=== PATIENT | female | born 1965 | race Caucasian/White ===

== ENCOUNTER → 2016-06-14 | Outpatient (CLI) | payer MEDICARE, OTHER ==
[~2016-06-14] MED LIST: ATOM10 PO; FISH OIL PO; FISH OIL/SALMO500 MG PO; FURO20 PO; HYD25 PO; HYDR-4031 PO; KDUR20 PO; METO2.5T2 PO; OMEGA PO; OMEP20 PO; QUET100T33 PO; QUET200T PO; QUET25TA34 PO; ROPI1TAB11 PO; ROPI1TAB38 PO; SERT100T12 PO; SPIR25 PO; VIST50 PO; VITAD1000 PO
== END | disposition home or self-care (01) ==
LOC: RADPV 11:03
PROVIDERS: ATTEND Orthopaedic Surgery
DX: Z47.1 Aftercare following joint replacement surgery (principal); Z96.651 Presence of right artificial knee joint

== ENCOUNTER 2017-03-16 10:27 | Inpatient (IN) | payer MEDICARE, MEDICAID ==
[~2017-03-16] VITALS: Ht 170.2 cm; Wt 133.8 kg
[2017-03-16] MEDS ORDERED: QUEtiapine FUMARATE 100 MG TABLET PO PRN (11:00)
[2017-03-16] MEDS ORDERED: ZOLPIDEM TARTRATE 10 MG TABLET PO PRN (11:00)
[2017-03-16 11:52] VITALS: BP 140/86
[2017-03-16] MEDS: HydrOXYzine PAMOATE 25 MG CAPSULE PO SCH ×2 (14:07→16:54)
[2017-03-16] MEDS: IBUPROFEN 600 MG TABLET PO PRN (14:34)
[2017-03-16] MEDS ORDERED: PNEUMOCOCCAL VACCINE POLYVALENT 0.5 ML VIAL [PPSV23] IM ONE (14:45)
[2017-03-16] MEDS ORDERED: LOPERAMIDE HCL 2 MG CAPSULE PO PRN (16:00)
[2017-03-16] MEDS ORDERED: GuaiFENesin/D-METHORPHAN [SUGAR-FREE] 200-20MG/10 ML SYRUP UDCUP PO PRN (16:00)
[2017-03-16] MEDS ORDERED: HydrOXYzine PAMOATE 50 MG CAPSULE PO PRN (16:00)
[2017-03-16] MEDS ORDERED: PROMETHAZINE HCL 25 MG TABLET PO PRN (16:00)
[2017-03-16] MEDS ORDERED: MAG HYDROX/AL HYDROX/SIMETH ES 30 ML SUSPENSION UDCUP PO PRN (16:00)
[2017-03-16] MEDS ORDERED: ACETAMINOPHEN 325 MG TABLET PO PRN (16:00)
[2017-03-16] MEDS ORDERED: MAGNESIUM HYDROXIDE SUSPENSION 30 ML UDCUP PO PRN (16:00)
[2017-03-16] MEDS: ALBUTEROL SULFATE HFA 90 MCG/PUFF 8 GM INHALER IH SCH (16:54)
[2017-03-16] MEDS: THIAMINE HCL 100 MG TABLET PO SCH (16:57)
[2017-03-16 17:00] VITALS: BP 145/90
[2017-03-16] MEDS: HydrOXYzine PAMOATE 50 MG CAPSULE PO SCH (20:17)
[2017-03-16] MEDS: LORazepam 2 MG TABLET PO PRN (20:18)
[2017-03-16] MEDS ORDERED: MIRTAZAPINE 30 MG TABLET PO SCH (21:00)
[2017-03-16] MEDS ORDERED: QUEtiapine FUMARATE 200 MG TABLET PO SCH (21:00)
[2017-03-16] MEDS ORDERED: ROPINIRole HCL 1 MG TABLET PO SCH (21:00)
[2017-03-16 21:06] VITALS: BP 127/87
[2017-03-17 05:54] VITALS: BP 129/76
[2017-03-17 08:20] LABS: BASOPHILS # (AUTO) 0.03 K/uL (0.00-0.20); BASOPHILS % (AUTO) 0.6 % (0.0-2.0); EOSINOPHILS # (AUTO) 0.25 K/uL (0.00-0.70); HEMATOCRIT 33.6 % (36-46); HEMOGLOBIN 11.3 g/dL (12.0-16.0); LYMPHOCYTES # (AUTO) 1.8 K/uL (1.0-4.8); LYMPHOCYTES % (AUTO) 31.2 % (22.0-44.0); MEAN CORPUSCULAR HEMOGLOBIN 31.4 pg (26.0-34.0); MEAN CORPUSCULAR HGB CONC 33.7 G/dL (31.0-37.0); MEAN CORPUSCULAR VOLUME 93 fL (80-100); MONOCYTES # (AUTO) 0.6 K/uL (0.1-1.0); MONOCYTES % (AUTO) 9.9 % (2.0-9.0); NEUTROPHILS # (AUTO) 3.1 K/uL (1.8-7.7); NEUTROPHILS % (AUTO) 53.9 % (40.0-70.0); PLATELET COUNT (AUTO) 247 K/uL (150-450); RED BLOOD CELL COUNT(AUTO) 3.61 MIL/uL (4.00-5.20); RED CELL DISTRIBUTION WIDTH 13.4 % (11.5-14.5)
[2017-03-17 08:21] VITALS: BP 109/72
[2017-03-17] MEDS: HydrOXYzine PAMOATE 25 MG CAPSULE PO SCH ×3 (08:37→16:44)
[2017-03-17] MEDS: THIAMINE HCL 100 MG TABLET PO SCH ×2 (08:37→16:44)
[2017-03-17] MEDS: FOLIC ACID 1 MG TABLET PO SCH (08:37)
[2017-03-17] MEDS: MULTIVITAMINS WITH MINERALS, THERAPEUTIC TABLET PO SCH (08:37)
[2017-03-17] MEDS: OMEPRAZOLE 20 MG CAPSULE PO SCH (08:37)
[2017-03-17] MEDS: ATOMOXETINE HCL 10 MG CAPSULE PO SCH (08:38)
[2017-03-17] MEDS: ATOMOXETINE HCL 25 MG CAPSULE PO SCH (08:38)
[2017-03-17] MEDS: ATORVASTATIN CALCIUM 40 MG TABLET PO SCH (08:38)
[2017-03-17] MEDS: ASPIRIN 81 MG EC TABLET PO SCH (08:38)
[2017-03-17] MEDS: METOPROLOL SUCCINATE 100 MG ER TABLET PO SCH (08:38)
[2017-03-17] MEDS: ALBUTEROL SULFATE HFA 90 MCG/PUFF 8 GM INHALER IH SCH ×2 (08:39→16:44)
[2017-03-17] MEDS: ASCORBIC ACID 500 MG TABLET PO SCH (08:39)
[2017-03-17] MEDS ORDERED: ATOMOXETINE HCL 10 MG CAPSULE PO SCH (09:00)
[2017-03-17 09:13] LABS: ALANINE AMINOTRANSFERASE 57 U/L (12-78); ALBUMIN 3.3 g/dL (3.4-5.0); ALKALINE PHOSPHATASE 89 U/L (46-116); ANION GAP 8 mmol/L (8-16); ASPARTATE AMINOTRANSFERASE 30 U/L (15-37); BILIRUBIN,TOTAL 0.3 mg/dL (0.1-1.0); CALCIUM, TOTAL 8.5 mg/dL (8.8-10.5); CARBON DIOXIDE 27 mmol/L (22-29); CHLORIDE 105 mmol/L (98-107); CHOL/HDL RATIO 2.8 (3.9-5.7); CHOLESTEROL 155 mg/dL (131-200); CREATININE 0.74 mg/dL (0.60-1.30); FREE T4 (FREE THYROXINE) 0.68 ng/dL (0.76-1.46); GLOMERULAR FILTR. RATE CALC > 60 mL/min (>60); GLUCOSE,RANDOM 127 mg/dL (70-110); HDL CHOLESTEROL 55 mg/dL (40-60); LDL CHOL (CALC.) 73 mg/dL (0-130); POTASSIUM 3.4 mmol/L (3.5-5.1); SODIUM SERUM 140 mmol/L (136-145); THYROID STIMULATING HORMONE 2.32 uIU/mL (0.36-3.74); TOTAL PROTEIN, SERUM 6.3 g/dL (6.4-8.2); TRIGLYCERIDES 136 mg/dL (15-150); UREA NITROGEN, BLOOD 20 mg/dL (7-18)
[2017-03-17] MEDS ORDERED: POTASSIUM CHLORIDE 20 MEQ ER TABLET PO ONE (10:00)
[2017-03-17 10:08] LABS: HEMOGLOBIN A1C 7.1 % (4.5-6.2)
[2017-03-17] MEDS: IBUPROFEN 600 MG TABLET PO PRN ×2 (12:39→21:08)
[2017-03-17 16:05] VITALS: BP 126/69
[2017-03-17] MEDS: HydrOXYzine PAMOATE 50 MG CAPSULE PO SCH (20:26)
[2017-03-17] MEDS: MIRTAZAPINE 30 MG TABLET PO SCH (20:26)
[2017-03-18 01:13] VITALS: BP 129/76
[2017-03-18 08:05] VITALS: BP 132/80
[2017-03-18] MEDS: ASPIRIN 81 MG EC TABLET PO SCH (08:30)
[2017-03-18] MEDS: ATOMOXETINE HCL 10 MG CAPSULE PO SCH (08:30)
[2017-03-18] MEDS: ATOMOXETINE HCL 25 MG CAPSULE PO SCH (08:30)
[2017-03-18] MEDS: METOPROLOL SUCCINATE 100 MG ER TABLET PO SCH (08:30)
[2017-03-18] MEDS: THIAMINE HCL 100 MG TABLET PO SCH ×2 (08:31→16:43)
[2017-03-18] MEDS: ARIPiprazole 15 MG TABLET PO SCH (08:31)
[2017-03-18] MEDS: OMEPRAZOLE 20 MG CAPSULE PO SCH (08:31)
[2017-03-18] MEDS: ASCORBIC ACID 500 MG TABLET PO SCH (08:31)
[2017-03-18] MEDS: HydrOXYzine PAMOATE 25 MG CAPSULE PO SCH ×3 (08:31→16:44)
[2017-03-18] MEDS: MULTIVITAMINS WITH MINERALS, THERAPEUTIC TABLET PO SCH (08:31)
[2017-03-18] MEDS: FOLIC ACID 1 MG TABLET PO SCH (08:31)
[2017-03-18] MEDS: ATORVASTATIN CALCIUM 40 MG TABLET PO SCH (08:37)
[2017-03-18] MEDS: ALBUTEROL SULFATE HFA 90 MCG/PUFF 8 GM INHALER IH SCH ×2 (08:37→16:44)
[2017-03-18] MEDS ORDERED: DULoxetine HCL 20 MG CAPSULE PO SCH (09:00)
[2017-03-18] MEDS: PREGABALIN 50 MG CAPSULE PO SCH ×2 (12:36→16:44)
[2017-03-18 16:13] VITALS: BP 109/65
[2017-03-18 20:31] VITALS: BP 122/74
[2017-03-18] MEDS: IBUPROFEN 600 MG TABLET PO PRN (20:31)
[2017-03-18] MEDS: MIRTAZAPINE 30 MG TABLET PO SCH (21:19)
[2017-03-18] MEDS: ROPINIRole HCL 1 MG TABLET PO SCH (21:19)
[2017-03-18] MEDS: HydrOXYzine PAMOATE 50 MG CAPSULE PO SCH (21:19)
[2017-03-19 01:40] VITALS: BP 116/65
[2017-03-19 08:52] VITALS: BP 140/79
[2017-03-19] MEDS: ASCORBIC ACID 500 MG TABLET PO SCH (09:40)
[2017-03-19] MEDS: MULTIVITAMINS WITH MINERALS, THERAPEUTIC TABLET PO SCH (09:40)
[2017-03-19] MEDS: ASPIRIN 81 MG EC TABLET PO SCH (09:40)
[2017-03-19] MEDS: DULoxetine HCL 30 MG CAPSULE PO SCH (09:40)
[2017-03-19] MEDS: ARIPiprazole 15 MG TABLET PO SCH (09:40)
[2017-03-19] MEDS: FOLIC ACID 1 MG TABLET PO SCH (09:40)
[2017-03-19] MEDS: ATORVASTATIN CALCIUM 40 MG TABLET PO SCH (09:40)
[2017-03-19] MEDS: OMEPRAZOLE 20 MG CAPSULE PO SCH (09:40)
[2017-03-19] MEDS: METOPROLOL SUCCINATE 100 MG ER TABLET PO SCH (09:41)
[2017-03-19] MEDS: PREGABALIN 50 MG CAPSULE PO SCH ×3 (09:41→16:28)
[2017-03-19] MEDS: THIAMINE HCL 100 MG TABLET PO SCH ×2 (09:41→16:28)
[2017-03-19] MEDS: ATOMOXETINE HCL 25 MG CAPSULE PO SCH ×2 (09:41→10:08)
[2017-03-19] MEDS: HydrOXYzine PAMOATE 25 MG CAPSULE PO SCH ×3 (09:41→16:28)
[2017-03-19] MEDS: IBUPROFEN 600 MG TABLET PO PRN ×2 (09:43→19:54)
[2017-03-19] MEDS: ATOMOXETINE HCL 10 MG CAPSULE PO SCH (10:01)
[2017-03-19] MEDS: ALBUTEROL SULFATE HFA 90 MCG/PUFF 8 GM INHALER IH SCH ×2 (10:07→16:29)
[2017-03-19] MEDS: LORazepam 2 MG TABLET PO PRN (13:28)
[2017-03-19 16:07] VITALS: BP 125/68
[2017-03-19 19:54] VITALS: BP 130/80
[2017-03-19] MEDS: ROPINIRole HCL 1 MG TABLET PO SCH (20:28)
[2017-03-19] MEDS: MIRTAZAPINE 30 MG TABLET PO SCH (20:28)
[2017-03-19] MEDS: HydrOXYzine PAMOATE 50 MG CAPSULE PO SCH (20:28)
[2017-03-20] VITALS: BP 135/77
[2017-03-20 08:11] VITALS: BP 152/92
[2017-03-20] MEDS: MULTIVITAMINS WITH MINERALS, THERAPEUTIC TABLET PO SCH (08:18)
[2017-03-20] MEDS: FOLIC ACID 1 MG TABLET PO SCH (08:18)
[2017-03-20] MEDS: HydrOXYzine PAMOATE 25 MG CAPSULE PO SCH ×3 (08:19→16:29)
[2017-03-20] MEDS: THIAMINE HCL 100 MG TABLET PO SCH ×2 (08:19→16:29)
[2017-03-20] MEDS: ARIPiprazole 15 MG TABLET PO SCH (08:19)
[2017-03-20] MEDS: OMEPRAZOLE 20 MG CAPSULE PO SCH (08:19)
[2017-03-20] MEDS: ASCORBIC ACID 500 MG TABLET PO SCH (08:20)
[2017-03-20] MEDS: METOPROLOL SUCCINATE 100 MG ER TABLET PO SCH (08:20)
[2017-03-20] MEDS: ATOMOXETINE HCL 25 MG CAPSULE PO SCH (08:21)
[2017-03-20] MEDS: ATOMOXETINE HCL 10 MG CAPSULE PO SCH (08:24)
[2017-03-20] MEDS: ASPIRIN 81 MG EC TABLET PO SCH (08:25)
[2017-03-20] MEDS: ATORVASTATIN CALCIUM 40 MG TABLET PO SCH (08:25)
[2017-03-20] MEDS: PREGABALIN 50 MG CAPSULE PO SCH ×3 (08:25→16:29)
[2017-03-20] MEDS: DULoxetine HCL 30 MG CAPSULE PO SCH (08:26)
[2017-03-20] MEDS: ALBUTEROL SULFATE HFA 90 MCG/PUFF 8 GM INHALER IH SCH ×2 (08:26→16:29)
[2017-03-20 09:59] VITALS: BP 147/95
[2017-03-20 10:01] VITALS: BP 114/96
[2017-03-20] MEDS: IBUPROFEN 600 MG TABLET PO PRN (10:01)
[2017-03-20 16:58] VITALS: BP 132/86
[2017-03-20] MEDS: LORazepam 2 MG TABLET PO PRN (18:15)
[2017-03-20] MEDS: MIRTAZAPINE 30 MG TABLET PO SCH (20:06)
[2017-03-20] MEDS: ROPINIRole HCL 1 MG TABLET PO SCH (20:06)
[2017-03-20] MEDS: HydrOXYzine PAMOATE 50 MG CAPSULE PO SCH (20:07)
[2017-03-21 01:13] VITALS: BP 130/74
[2017-03-21] MEDS: HydrOXYzine PAMOATE 25 MG CAPSULE PO SCH ×3 (08:50→16:20)
[2017-03-21] MEDS: MULTIVITAMINS WITH MINERALS, THERAPEUTIC TABLET PO SCH (08:51)
[2017-03-21] MEDS: FOLIC ACID 1 MG TABLET PO SCH (08:51)
[2017-03-21] MEDS: ARIPiprazole 15 MG TABLET PO SCH (08:51)
[2017-03-21] MEDS: OMEPRAZOLE 20 MG CAPSULE PO SCH (08:51)
[2017-03-21] MEDS: THIAMINE HCL 100 MG TABLET PO SCH ×2 (08:51→16:20)
[2017-03-21] MEDS: ATOMOXETINE HCL 25 MG CAPSULE PO SCH (08:52)
[2017-03-21] MEDS: ATOMOXETINE HCL 10 MG CAPSULE PO SCH (08:52)
[2017-03-21] MEDS: METOPROLOL SUCCINATE 100 MG ER TABLET PO SCH (08:53)
[2017-03-21] MEDS: ASCORBIC ACID 500 MG TABLET PO SCH (08:53)
[2017-03-21] MEDS: ASPIRIN 81 MG EC TABLET PO SCH (08:59)
[2017-03-21] MEDS: DULoxetine HCL 30 MG CAPSULE PO SCH (08:59)
[2017-03-21] MEDS: ATORVASTATIN CALCIUM 40 MG TABLET PO SCH (08:59)
[2017-03-21] MEDS: PREGABALIN 50 MG CAPSULE PO SCH ×3 (08:59→16:41)
[2017-03-21 09:00] VITALS: BP 149/86
[2017-03-21] MEDS: ALBUTEROL SULFATE HFA 90 MCG/PUFF 8 GM INHALER IH SCH ×2 (09:00→16:20)
[2017-03-21] MEDS ORDERED: ARIP15TA2 PO (13:46)
[2017-03-21] MEDS ORDERED: ROPI1TAB38 PO (13:46)
[2017-03-21] MEDS ORDERED: DULO30CA2 PO (13:46)
[2017-03-21] MEDS ORDERED: MIRT30 PO (13:46)
[2017-03-21] MEDS ORDERED: ATOM25 PO (13:46)
[2017-03-21] MEDS ORDERED: HYD25 PO (13:46)
[2017-03-21] MEDS ORDERED: PREG50 PO (13:46)
[2017-03-21 16:20] VITALS: BP 125/79
[2017-03-21] MEDS ORDERED: ALBU8HFA4 IH (17:32)
[2017-03-21] MEDS ORDERED: ASPI-1182 PO (17:33)
[2017-03-21] MEDS ORDERED: FOLI1TAB15 PO (17:34)
[2017-03-21] MEDS ORDERED: ATOR40TA28 PO (17:35)
[2017-03-21] MEDS ORDERED: METO-558 PO (17:36)
[2017-03-21] MEDS ORDERED: ASCO500 PO (17:37)
[2017-03-21] MEDS ORDERED: THIA100 PO (17:37)
== END 2017-03-21 21:50 | disposition home or self-care (01) | DRG 885 ==
LOC: B2S 11:29
PROVIDERS: ADMIT Psychiatry & Neurology Psychiatry; ATTEND Psychiatry & Neurology Psychiatry
PROC: 3E0234Z Introduction of Serum, Toxoid and Vaccine into Muscle, Percutaneous Approach (ICD-10-PCS; principal; 2017-03-16)
DX: F25.9 Schizoaffective disorder, unspecified (principal); I11.0 Hypertensive heart disease with heart failure; E66.01 Morbid (severe) obesity due to excess calories; I50.22 Chronic systolic (congestive) heart failure; R45.851 Suicidal ideations; F23 Brief psychotic disorder; Z68.42 Body mass index [BMI] 45.0-49.9, adult; E78.5 Hyperlipidemia, unspecified; E87.6 Hypokalemia; G47.00 Insomnia, unspecified; G89.29 Other chronic pain; J44.9 Chronic obstructive pulmonary disease, unspecified; K21.9 Gastro-esophageal reflux disease without esophagitis; M19.90 Unspecified osteoarthritis, unspecified site; Z96.651 Presence of right artificial knee joint; F17.200 Nicotine dependence, unspecified, uncomplicated; M20.41 Other hammer toe(s) (acquired), right foot; G25.81 Restless legs syndrome; Z91.19 Patient's noncompliance with other medical treatment and regimen; Z95.810 Presence of automatic (implantable) cardiac defibrillator; Z91.013 Allergy to seafood; Z91.018 Allergy to other foods; Z79.899 Other long term (current) drug therapy; Z23 Encounter for immunization
CPT/HCPCS: 83036; 84132; 84439; 84443; 90471; J3535

== ENCOUNTER 2017-07-12 13:25 | Inpatient (IN) | payer MEDICARE, MEDICAID ==
[~2017-07-12] VITALS: Ht 170.2 cm; Wt 139.4 kg
[~2017-07-12 13:25] MED LIST changes: +ALBU8HFA4 IH; +ARIP15TA2 PO; +ASCO500 PO; +ASPI-1182 PO; +ATOM25 PO; +ATOR40TA28 PO; +DULO30CA2 PO; -FISH OIL PO; -FISH OIL/SALMO500 MG PO; +FOLI1TAB15 PO; -FURO20 PO; -KDUR20 PO; +METO-558 PO; -METO2.5T2 PO; +MIRT30 PO; -OMEGA PO; +PREG50 PO; -QUET100T33 PO; -QUET200T PO; -QUET25TA34 PO; -ROPI1TAB11 PO; -SERT100T12 PO; -SPIR25 PO; +THIA100 PO; -VIST50 PO; -VITAD1000 PO
[2017-07-12] MEDS ORDERED: ZOLPIDEM TARTRATE 10 MG TABLET PO PRN (13:30)
[2017-07-12] MEDS ORDERED: LORazepam 2 MG TABLET PO PRN (13:30)
[2017-07-12] MEDS ORDERED: ALBUTEROL SULFATE HFA 90 MCG/PUFF 8 GM INHALER IH PRN ×2 (13:30→21:30)
[2017-07-12 13:52] VITALS: BP 125/72
[2017-07-12] MEDS ORDERED: HydrOXYzine PAMOATE 50 MG CAPSULE PO PRN (15:00)
[2017-07-12] MEDS ORDERED: MAGNESIUM HYDROXIDE SUSPENSION 30 ML UDCUP PO PRN (15:00)
[2017-07-12] MEDS ORDERED: PROMETHAZINE HCL 25 MG TABLET PO PRN (15:00)
[2017-07-12] MEDS ORDERED: GuaiFENesin/D-METHORPHAN [SUGAR-FREE] 200-20MG/10 ML SYRUP UDCUP PO PRN (15:00)
[2017-07-12] MEDS ORDERED: MAG HYDROX/AL HYDROX/SIMETH ES 30 ML SUSPENSION UDCUP PO PRN ×2 (15:00→21:30)
[2017-07-12] MEDS ORDERED: ACETAMINOPHEN 325 MG TABLET PO PRN ×2 (15:00→18:15)
[2017-07-12] MEDS ORDERED: LOPERAMIDE HCL 2 MG CAPSULE PO PRN ×2 (15:00→21:30)
[2017-07-12] MEDS: HydrOXYzine PAMOATE 25 MG CAPSULE PO SCH ×2 (15:39→16:53)
[2017-07-12] MEDS: PREGABALIN 50 MG CAPSULE PO SCH ×2 (15:39→16:53)
[2017-07-12 16:25] VITALS: BP 120/74
[2017-07-12] MEDS: THIAMINE HCL 100 MG TABLET PO SCH (16:53)
[2017-07-12] MEDS ORDERED: APIXABAN 5 MG TABLET PO SCH (17:00)
[2017-07-12] MEDS ORDERED: POTASSIUM CHLORIDE 20 MEQ ER TABLET PO SCH (17:00)
[2017-07-12] MEDS: QUEtiapine FUMARATE 100 MG TABLET PO PRN (20:39)
[2017-07-12] MEDS: MIRTAZAPINE 15 MG TABLET PO SCH (20:39)
[2017-07-12] MEDS: ROPINIRole HCL 1 MG TABLET PO SCH (20:39)
[2017-07-12] MEDS ORDERED: CloNIDine HCL 0.1 MG TABLET PO PRN (21:30)
[2017-07-12] MEDS ORDERED: BENZOCAINE/MENTHOL LOZENGE MM PRN (21:30)
[2017-07-12] MEDS ORDERED: BACITRACIN 28.4 GM OINTMENT TP PRN (21:30)
[2017-07-12] MEDS ORDERED: PETROLATUM,WHITE 71 GM JELLY TP PRN (21:30)
[2017-07-12] MEDS ORDERED: IBUPROFEN 600 MG TABLET PO PRN (21:30)
[2017-07-12] MEDS ORDERED: ONDANSETRON HCL 4 MG TABLET PO PRN (21:30)
[2017-07-13 06:35] VITALS: BP 118/65
[2017-07-13 08:55] VITALS: BP 129/77
[2017-07-13] MEDS ORDERED: GLUCAGON,HUMAN RECOMBINANT 1 MG VIAL IM PRN (09:00)
[2017-07-13] MEDS ORDERED: FOLIC ACID 1 MG TABLET PO SCH (09:00)
[2017-07-13] MEDS ORDERED: DULoxetine HCL 30 MG CAPSULE PO SCH (09:00)
[2017-07-13] MEDS: METOPROLOL SUCCINATE 50 MG ER TABLET PO SCH (09:14)
[2017-07-13] MEDS: THIAMINE HCL 100 MG TABLET PO SCH ×2 (09:14→16:38)
[2017-07-13] MEDS: FUROSEMIDE 40 MG TABLET PO SCH (09:14)
[2017-07-13] MEDS: OMEPRAZOLE 20 MG CAPSULE PO SCH (09:14)
[2017-07-13] MEDS: DOCUSATE SODIUM 100 MG CAPSULE PO SCH (09:14)
[2017-07-13] MEDS: ARIPiprazole 15 MG TABLET PO SCH (09:14)
[2017-07-13] MEDS: ASPIRIN 81 MG EC TABLET PO SCH (09:14)
[2017-07-13] MEDS: HydrOXYzine PAMOATE 25 MG CAPSULE PO SCH ×3 (09:14→16:38)
[2017-07-13] MEDS: POTASSIUM CHLORIDE 10 MEQ ER TABLET PO SCH ×2 (09:14→16:38)
[2017-07-13] MEDS: PREGABALIN 50 MG CAPSULE PO SCH ×3 (09:14→16:38)
[2017-07-13] MEDS: AMIODARONE HCL 200 MG TABLET PO SCH (09:14)
[2017-07-13] MEDS: MULTIVITAMINS WITH MINERALS, THERAPEUTIC TABLET PO SCH (09:14)
[2017-07-13] MEDS: ATOMOXETINE HCL 40 MG CAPSULE PO SCH (09:15)
[2017-07-13] MEDS: FOLIC ACID 1 MG TABLET PO SCH (09:19)
[2017-07-13 09:37] LABS: BASOPHILS % (AUTO) 0.7 % (0.0-2.0); EOSINOPHILS % (AUTO) 3.4 % (1.0-6.0); HEMATOCRIT 34.4 % (36-46); HEMOGLOBIN 11.7 g/dL (12.0-16.0); LYMPHOCYTES # (AUTO) 1.8 K/uL (1.0-4.8); LYMPHOCYTES % (AUTO) 22.7 % (22.0-44.0); MEAN CORPUSCULAR VOLUME 88 fL (80-100); MONOCYTES # (AUTO) 0.7 K/uL (0.1-1.0); MONOCYTES % (AUTO) 8.9 % (2.0-9.0); NEUTROPHILS # (AUTO) 5.2 K/uL (1.8-7.7); NEUTROPHILS % (AUTO) 64.3 % (40.0-70.0); PLATELET COUNT (AUTO) 253 K/uL (150-450); RED CELL DISTRIBUTION WIDTH 14.9 % (11.5-14.5)
[2017-07-13 09:57] LABS: HEMOGLOBIN A1C 7.5 % (4.5-6.2)
[2017-07-13] MEDS ORDERED: SODIUM CHLORIDE 0.65% 44 ML NASAL SPRAY NASAL PRN (10:30)
[2017-07-13 10:37] LABS: ALBUMIN 3.4 g/dL (3.4-5.0); BILIRUBIN,TOTAL 0.3 mg/dL (0.1-1.0); CALCIUM, TOTAL 8.5 mg/dL (8.8-10.5); CHOL/HDL RATIO 3.7 (3.9-5.7); CREATININE 1.06 mg/dL (0.60-1.30); FREE T4 (FREE THYROXINE) 0.77 ng/dL (0.76-1.46); POTASSIUM 3.2 mmol/L (3.5-5.1); THYROID STIMULATING HORMONE 3.04 uIU/mL (0.36-3.74); TOTAL PROTEIN, SERUM 6.6 g/dL (6.4-8.2)
[2017-07-13] MEDS ORDERED: POTASSIUM CHLORIDE 20 MEQ ER TABLET PO ONE (12:00)
[2017-07-13 12:26] VITALS: BP 124/77
[2017-07-13] MEDS: OXYMETAZOLINE HCL 0.05% 15 ML NASAL SPRAY NASAL SCH ×2 (12:30→20:38)
[2017-07-13 16:03] VITALS: BP 110/73
[2017-07-13] MEDS: INSULIN LISPRO 100 UNITS/ML SQ PRN (16:47)
[2017-07-13 16:48] LABS: GLUCOMETER DEV NAME(LOC) BV2S 2; GLUCOSE,POINT OF CARE 150 MG/DL (70-110)
[2017-07-13] MEDS: ACETAMINOPHEN 325 MG TABLET PO PRN (17:14)
[2017-07-13] MEDS: MIRTAZAPINE 15 MG TABLET PO SCH (20:37)
[2017-07-13] MEDS: ROPINIRole HCL 1 MG TABLET PO SCH (20:38)
[2017-07-13] MEDS: QUEtiapine FUMARATE 100 MG TABLET PO PRN (20:38)
[2017-07-13 21:03] LABS: GLUCOMETER DEV NAME(LOC) BV2S 2; GLUCOSE,POINT OF CARE 138 MG/DL (70-110)
[2017-07-14 06:43] VITALS: BP 138/89
[2017-07-14] MEDS: INSULIN LISPRO 100 UNITS/ML SQ PRN ×3 (06:45→21:06)
[2017-07-14 07:12] LABS: GLUCOMETER DEV NAME(LOC) BV2S 2; GLUCOSE,POINT OF CARE 157 MG/DL (70-110)
[2017-07-14 08:05] LABS: ANION GAP 6 mmol/L (8-16); CALCIUM, TOTAL 8.4 mg/dL (8.8-10.5); CARBON DIOXIDE 30 mmol/L (22-29); CHLORIDE 104 mmol/L (98-107); CREATININE 0.89 mg/dL (0.60-1.30); GLOMERULAR FILTR. RATE CALC > 60 mL/min (>60); GLUCOSE,RANDOM 135 mg/dL (70-110); POTASSIUM 3.5 mmol/L (3.5-5.1); SODIUM SERUM 140 mmol/L (136-145); UREA NITROGEN, BLOOD 20 mg/dL (7-18)
[2017-07-14] MEDS: AMIODARONE HCL 200 MG TABLET PO SCH (08:08)
[2017-07-14] MEDS: FUROSEMIDE 40 MG TABLET PO SCH (08:08)
[2017-07-14] MEDS: OXYMETAZOLINE HCL 0.05% 15 ML NASAL SPRAY NASAL SCH ×2 (08:08→20:43)
[2017-07-14] MEDS: DOCUSATE SODIUM 100 MG CAPSULE PO SCH (08:09)
[2017-07-14] MEDS: DULoxetine HCL 60 MG CAPSULE PO SCH (08:09)
[2017-07-14] MEDS: METOPROLOL SUCCINATE 50 MG ER TABLET PO SCH (08:09)
[2017-07-14] MEDS: MULTIVITAMINS WITH MINERALS, THERAPEUTIC TABLET PO SCH (08:09)
[2017-07-14] MEDS: THIAMINE HCL 100 MG TABLET PO SCH ×2 (08:09→16:35)
[2017-07-14] MEDS: ASPIRIN 81 MG EC TABLET PO SCH (08:09)
[2017-07-14] MEDS: ARIPiprazole 15 MG TABLET PO SCH (08:09)
[2017-07-14] MEDS: OMEPRAZOLE 20 MG CAPSULE PO SCH (08:09)
[2017-07-14] MEDS: PREGABALIN 50 MG CAPSULE PO SCH ×3 (08:09→16:35)
[2017-07-14] MEDS: HydrOXYzine PAMOATE 25 MG CAPSULE PO SCH ×3 (08:09→16:35)
[2017-07-14] MEDS: FOLIC ACID 1 MG TABLET PO SCH (08:09)
[2017-07-14] MEDS: ATOMOXETINE HCL 40 MG CAPSULE PO SCH (08:10)
[2017-07-14] MEDS: POTASSIUM CHLORIDE 10 MEQ ER TABLET PO SCH ×2 (08:13→16:35)
[2017-07-14 08:21] VITALS: BP 126/85
[2017-07-14] MEDS: ACETAMINOPHEN 325 MG TABLET PO PRN (10:10)
[2017-07-14 12:08] LABS: GLUCOMETER DEV NAME(LOC) BV2S 2; GLUCOSE,POINT OF CARE 170 MG/DL (70-110)
[2017-07-14 13:18] LABS: GLUCOMETER DEV NAME(LOC) BV2S 2; GLUCOSE,POINT OF CARE 163 MG/DL (70-110)
[2017-07-14] MEDS ORDERED: MIRT15 PO (14:06)
[2017-07-14] MEDS ORDERED: ATOM40 PO (14:06)
[2017-07-14] MEDS ORDERED: ARIP15TA2 PO (14:06)
[2017-07-14] MEDS ORDERED: ROPI1TAB38 PO (14:06)
[2017-07-14] MEDS ORDERED: PREG50 PO (14:06)
[2017-07-14] MEDS ORDERED: HYD25 PO (14:06)
[2017-07-14] MEDS ORDERED: DULO60CA44 PO (14:06)
[2017-07-14 16:01] VITALS: BP 120/79
[2017-07-14 16:53] LABS: GLUCOMETER DEV NAME(LOC) BV2S 2; GLUCOSE,POINT OF CARE 137 MG/DL (70-110)
[2017-07-14 20:37] LABS: GLUCOMETER DEV NAME(LOC) BV2S 2; GLUCOSE,POINT OF CARE 187 MG/DL (70-110)
[2017-07-14] MEDS: ROPINIRole HCL 1 MG TABLET PO SCH (20:42)
[2017-07-14] MEDS: MIRTAZAPINE 15 MG TABLET PO SCH (20:42)
[2017-07-14] MEDS: QUEtiapine FUMARATE 100 MG TABLET PO PRN (21:05)
[2017-07-15 01:11] VITALS: BP 123/65
[2017-07-15 06:28] LABS: GLUCOMETER DEV NAME(LOC) BV2S 2; GLUCOSE,POINT OF CARE 146 MG/DL (70-110)
[2017-07-15] MEDS: INSULIN LISPRO 100 UNITS/ML SQ PRN (07:00)
[2017-07-15] MEDS: AMIODARONE HCL 200 MG TABLET PO SCH (08:32)
[2017-07-15] MEDS: ASPIRIN 81 MG EC TABLET PO SCH (08:32)
[2017-07-15] MEDS: FUROSEMIDE 40 MG TABLET PO SCH (08:32)
[2017-07-15] MEDS: OXYMETAZOLINE HCL 0.05% 15 ML NASAL SPRAY NASAL SCH (08:32)
[2017-07-15] MEDS: PREGABALIN 50 MG CAPSULE PO SCH (08:32)
[2017-07-15] MEDS: DULoxetine HCL 60 MG CAPSULE PO SCH (08:32)
[2017-07-15] MEDS: ATOMOXETINE HCL 40 MG CAPSULE PO SCH (08:32)
[2017-07-15] MEDS: METOPROLOL SUCCINATE 50 MG ER TABLET PO SCH (08:32)
[2017-07-15] MEDS: DOCUSATE SODIUM 100 MG CAPSULE PO SCH (08:33)
[2017-07-15] MEDS: THIAMINE HCL 100 MG TABLET PO SCH (08:33)
[2017-07-15] MEDS: HydrOXYzine PAMOATE 25 MG CAPSULE PO SCH (08:34)
[2017-07-15] MEDS: OMEPRAZOLE 20 MG CAPSULE PO SCH (08:34)
[2017-07-15] MEDS: FOLIC ACID 1 MG TABLET PO SCH (08:34)
[2017-07-15] MEDS: MULTIVITAMINS WITH MINERALS, THERAPEUTIC TABLET PO SCH (08:34)
[2017-07-15] MEDS: ARIPiprazole 15 MG TABLET PO SCH (08:34)
[2017-07-15 08:35] VITALS: BP 115/73
[2017-07-15] MEDS ORDERED: HYDR-4031 PO (08:51)
[2017-07-15] MEDS ORDERED: AMIO200T44 PO (08:56)
[2017-07-15] MEDS ORDERED: DSS100 PO (08:56)
[2017-07-15] MEDS ORDERED: ARIP15TA2 PO (08:56)
[2017-07-15] MEDS ORDERED: THIA100 PO (08:56)
[2017-07-15] MEDS ORDERED: KDUR20 PO (08:56)
[2017-07-15] MEDS ORDERED: OXYM30SP27 NASAL (08:56)
[2017-07-15] MEDS ORDERED: FURO40 PO (08:56)
[2017-07-15] MEDS ORDERED: POTASSIUM CHLORIDE 20 MEQ ER TABLET PO SCH (09:00)
== END 2017-07-15 10:25 | disposition home or self-care (01) | DRG 885 ==
LOC: B2S 13:53
PROVIDERS: ADMIT Psychiatry & Neurology Psychiatry; ATTEND Psychiatry & Neurology Psychiatry
DX: F25.9 Schizoaffective disorder, unspecified (principal); R45.851 Suicidal ideations; I11.0 Hypertensive heart disease with heart failure; I50.22 Chronic systolic (congestive) heart failure; E11.65 Type 2 diabetes mellitus with hyperglycemia; Z68.42 Body mass index [BMI] 45.0-49.9, adult; E66.01 Morbid (severe) obesity due to excess calories; F32.9 Major depressive disorder, single episode, unspecified; M19.90 Unspecified osteoarthritis, unspecified site; J44.9 Chronic obstructive pulmonary disease, unspecified; G47.00 Insomnia, unspecified; E78.5 Hyperlipidemia, unspecified; E55.9 Vitamin D deficiency, unspecified; R26.9 Unspecified abnormalities of gait and mobility; R51 Headache; Z96.651 Presence of right artificial knee joint; Z96.649 Presence of unspecified artificial hip joint; Z95.810 Presence of automatic (implantable) cardiac defibrillator; Z91.013 Allergy to seafood; Z91.018 Allergy to other foods; Z56.0 Unemployment, unspecified; Z79.899 Other long term (current) drug therapy; Z91.19 Patient's noncompliance with other medical treatment and regimen; Z87.891 Personal history of nicotine dependence
CPT/HCPCS: 82306; 83036; 84439; 84443; J3535

== ENCOUNTER → 2018-03-31 | Outpatient (CLI) | payer MEDICARE, OTHER ==
[~2018-03-31] MED LIST changes: +AMIO200T44 PO; -ASCO500 PO; -ATOM10 PO; -ATOM25 PO; +ATOM40 PO; -ATOR40TA28 PO; +DSS100 PO; -DULO30CA2 PO; +DULO60CA44 PO; -FOLI1TAB15 PO; +FURO40 PO; -HYDR-4031 PO; +KDUR20 PO; +MIRT15 PO; -MIRT30 PO; +OXYM30SP27 NASAL; -THIA100 PO; +THIA100T67 PO
[2018-03-31 13:12] LABS: HEMOGLOBIN A1C 6.9 % (4.5-6.2)
[2018-03-31 13:36] LABS: CHOL/HDL RATIO 2.3 (3.9-5.7)
== END | disposition home or self-care (01) ==
LOC: LABPV 10:24
PROVIDERS: ATTEND Psychiatry & Neurology Psychiatry
DX: F25.9 Schizoaffective disorder, unspecified (principal); I13.0 Hypertensive heart and chronic kidney disease with heart failure and stage 1 through stage 4 chronic kidney disease, or unspecified chronic kidney disease; E11.22 Type 2 diabetes mellitus with diabetic chronic kidney disease; N18.9 Chronic kidney disease, unspecified; I50.9 Heart failure, unspecified
CPT/HCPCS: 82947; 83036

== ENCOUNTER 2018-05-08 11:22 | Inpatient (IN) | payer MEDICARE, MEDICAID ==
[~2018-05-08] VITALS: Ht 170.2 cm; Wt 136.1 kg
[2018-05-08] MEDS: TUBERCULIN, PURIFIED PROTEIN DERIVATIVE 5 TU/0.1 ML SYRINGE ID ONE ×2 (06:15→13:30)
[2018-05-08 13:16] VITALS: BP 139/84
[2018-05-08] MEDS ORDERED: LORazepam 1 MG TABLET PO PRN (13:30)
[2018-05-08] MEDS ORDERED: PROMETHAZINE HCL 25 MG TABLET PO PRN (13:30)
[2018-05-08] MEDS ORDERED: GuaiFENesin/D-METHORPHAN [SUGAR-FREE] 200-20MG/10 ML SYRUP UDCUP PO PRN (13:30)
[2018-05-08] MEDS ORDERED: MAGNESIUM HYDROXIDE SUSPENSION 30 ML UDCUP PO PRN (13:30)
[2018-05-08] MEDS ORDERED: MAG HYDROX/AL HYDROX/SIMETH ES 30 ML SUSPENSION UDCUP PO PRN (13:30)
[2018-05-08] MEDS ORDERED: HydrOXYzine PAMOATE 50 MG CAPSULE PO PRN (13:30)
[2018-05-08] MEDS ORDERED: QUEtiapine FUMARATE 100 MG TABLET PO PRN (13:30)
[2018-05-08] MEDS ORDERED: LOPERAMIDE HCL 2 MG CAPSULE PO PRN (13:30)
[2018-05-08 16:11] VITALS: BP 119/83
[2018-05-08] MEDS ORDERED: PREGABALIN 50 MG CAPSULE PO SCH (17:00)
[2018-05-08] MEDS ORDERED: THIAMINE HCL 100 MG TABLET PO SCH (17:00)
[2018-05-08] MEDS: OXYMETAZOLINE HCL 0.05% 15 ML NASAL SPRAY NASAL SCH (17:00)
[2018-05-08] MEDS: THIAMINE HCL 100 MG TABLET PO SCH (17:00)
[2018-05-08] MEDS: POTASSIUM CHLORIDE 20 MEQ ER TABLET PO SCH (17:00)
[2018-05-08] MEDS: PREGABALIN 50 MG CAPSULE PO SCH (17:00)
[2018-05-08] MEDS: HydrOXYzine PAMOATE 25 MG CAPSULE PO SCH (17:00)
[2018-05-08] MEDS: HYDROCORTISONE 1% 30 GM OINTMENT TP SCH (17:00)
[2018-05-08] MEDS ORDERED: HydrOXYzine HCL 25 MG TABLET PO SCH (17:00)
[2018-05-08] MEDS ORDERED: ROPINIRole HCL 1 MG TABLET PO SCH (21:00)
[2018-05-08] MEDS ORDERED: QUEtiapine FUMARATE 200 MG TABLET PO SCH (21:00)
[2018-05-08] MEDS: MIRTAZAPINE 15 MG TABLET PO SCH (21:11)
[2018-05-08] MEDS: ROPINIRole HCL 1 MG TABLET PO SCH (22:30)
[2018-05-09 00:38] VITALS: BP 121/68
[2018-05-09 08:36] VITALS: BP 117/67
[2018-05-09 08:44] LABS: BASOPHILS % (AUTO) 0.9 % (0.0-2.0); EOSINOPHILS % (AUTO) 8.5 % (1.0-6.0); HEMATOCRIT 34.7 % (36-46); HEMOGLOBIN 11.4 g/dL (12.0-16.0); LYMPHOCYTES # (AUTO) 1.3 K/uL (1.0-4.8); LYMPHOCYTES % (AUTO) 22.6 % (22.0-44.0); MEAN CORPUSCULAR HEMOGLOBIN 29.9 pg (26.0-34.0); MEAN CORPUSCULAR HGB CONC 32.9 G/dL (31.0-37.0); MEAN CORPUSCULAR VOLUME 91 fL (80-100); MONOCYTES # (AUTO) 0.7 K/uL (0.1-1.0); MONOCYTES % (AUTO) 11.9 % (2.0-9.0); NEUTROPHILS # (AUTO) 3.3 K/uL (1.8-7.7); NEUTROPHILS % (AUTO) 56.1 % (40.0-70.0); PLATELET COUNT (AUTO) 236 K/uL (150-450); RED BLOOD CELL COUNT(AUTO) 3.82 MIL/uL (4.00-5.20); RED CELL DISTRIBUTION WIDTH 15.8 % (11.5-14.5)
[2018-05-09] MEDS: DOCUSATE SODIUM 100 MG CAPSULE PO SCH (08:58)
[2018-05-09] MEDS: MULTIVITAMINS WITH MINERALS, THERAPEUTIC TABLET PO SCH (08:58)
[2018-05-09] MEDS: OMEPRAZOLE 20 MG CAPSULE PO SCH (08:58)
[2018-05-09] MEDS: POTASSIUM CHLORIDE 20 MEQ ER TABLET PO SCH ×2 (08:58→16:39)
[2018-05-09] MEDS: FOLIC ACID 1 MG TABLET PO SCH (08:58)
[2018-05-09] MEDS: OXYMETAZOLINE HCL 0.05% 15 ML NASAL SPRAY NASAL SCH ×2 (08:59→16:41)
[2018-05-09] MEDS: FUROSEMIDE 40 MG TABLET PO SCH (09:00)
[2018-05-09] MEDS ORDERED: ATOMOXETINE HCL 40 MG CAPSULE PO SCH (09:00)
[2018-05-09] MEDS: HYDROCORTISONE 1% 30 GM OINTMENT TP SCH ×2 (09:00→16:42)
[2018-05-09] MEDS ORDERED: DULoxetine HCL 30 MG CAPSULE PO SCH (09:00)
[2018-05-09 09:02] LABS: HEMOGLOBIN A1C 6.7 % (4.5-6.2)
[2018-05-09] MEDS: ASPIRIN 81 MG CHEWABLE TABLET PO SCH (09:02)
[2018-05-09] MEDS: HydrOXYzine PAMOATE 25 MG CAPSULE PO SCH ×3 (09:04→16:40)
[2018-05-09] MEDS: AMIODARONE HCL 200 MG TABLET PO SCH (09:05)
[2018-05-09] MEDS: ATOMOXETINE HCL 10 MG CAPSULE PO SCH (09:05)
[2018-05-09 09:06] LABS: ALBUMIN 3.5 g/dL (3.4-5.0); BILIRUBIN,TOTAL 0.4 mg/dL (0.1-1.0); CALCIUM, TOTAL 8.9 mg/dL (8.8-10.5); CREATININE 0.97 mg/dL (0.60-1.30); FREE T4 (FREE THYROXINE) 0.95 ng/dL (0.76-1.46); POTASSIUM 3.7 mmol/L (3.5-5.1); TOTAL PROTEIN, SERUM 6.3 g/dL (6.4-8.2)
[2018-05-09] MEDS: ALBUTEROL SULFATE HFA 90 MCG/PUFF 8 GM INHALER IH SCH ×2 (09:34→16:41)
[2018-05-09] MEDS: PREGABALIN 50 MG CAPSULE PO SCH ×3 (09:35→16:40)
[2018-05-09] MEDS: NALTREXONE HCL 50 MG TABLET PO SCH (09:35)
[2018-05-09] MEDS: THIAMINE HCL 100 MG TABLET PO SCH ×2 (09:38→16:40)
[2018-05-09] MEDS: ACETAMINOPHEN 325 MG TABLET PO PRN (12:36)
[2018-05-09 18:43] VITALS: BP 128/92
[2018-05-09] MEDS: MIRTAZAPINE 15 MG TABLET PO SCH (20:43)
[2018-05-09] MEDS: QUEtiapine FUMARATE 200 MG TABLET PO SCH (20:44)
[2018-05-09] MEDS: ROPINIRole HCL 1 MG TABLET PO SCH (20:44)
[2018-05-10 00:34] VITALS: BP 121/68
[2018-05-10] MEDS: HydrOXYzine PAMOATE 25 MG CAPSULE PO SCH ×3 (09:00→16:28)
[2018-05-10] MEDS ORDERED: DULoxetine HCL 20 MG CAPSULE PO SCH (09:00)
[2018-05-10 09:33] VITALS: BP_SYST 149; BP_SYST 160; BP_DIAS 76; BP_DIAS 88
[2018-05-10] MEDS: FUROSEMIDE 40 MG TABLET PO SCH (09:39)
[2018-05-10] MEDS: AMIODARONE HCL 200 MG TABLET PO SCH (09:40)
[2018-05-10] MEDS: THIAMINE HCL 100 MG TABLET PO SCH ×2 (09:41→16:28)
[2018-05-10] MEDS: MULTIVITAMINS WITH MINERALS, THERAPEUTIC TABLET PO SCH (09:41)
[2018-05-10] MEDS: POTASSIUM CHLORIDE 20 MEQ ER TABLET PO SCH ×2 (09:41→16:28)
[2018-05-10] MEDS: PREGABALIN 50 MG CAPSULE PO SCH ×3 (09:41→16:28)
[2018-05-10] MEDS: DOCUSATE SODIUM 100 MG CAPSULE PO SCH (09:41)
[2018-05-10] MEDS: ASPIRIN 81 MG CHEWABLE TABLET PO SCH (09:41)
[2018-05-10] MEDS: OMEPRAZOLE 20 MG CAPSULE PO SCH (09:42)
[2018-05-10] MEDS: HYDROCORTISONE 1% 30 GM OINTMENT TP SCH ×2 (09:45→16:32)
[2018-05-10] MEDS: ATOMOXETINE HCL 10 MG CAPSULE PO SCH (09:46)
[2018-05-10] MEDS: NALTREXONE HCL 50 MG TABLET PO SCH (09:47)
[2018-05-10] MEDS: FOLIC ACID 1 MG TABLET PO SCH (10:39)
[2018-05-10] MEDS: OXYMETAZOLINE HCL 0.05% 15 ML NASAL SPRAY NASAL SCH ×2 (10:40→16:31)
[2018-05-10] MEDS: ALBUTEROL SULFATE HFA 90 MCG/PUFF 8 GM INHALER IH SCH ×2 (10:40→16:31)
[2018-05-10 16:02] VITALS: BP 121/88
[2018-05-10] MEDS: QUEtiapine FUMARATE 200 MG TABLET PO SCH (20:28)
[2018-05-10] MEDS: MIRTAZAPINE 15 MG TABLET PO SCH (20:28)
[2018-05-10] MEDS: ROPINIRole HCL 1 MG TABLET PO SCH (20:28)
[2018-05-10] MEDS: ZOLPIDEM TARTRATE 10 MG TABLET PO PRN (22:38)
[2018-05-11 00:46] VITALS: BP 121/68
[2018-05-11] MEDS: DOCUSATE SODIUM 100 MG CAPSULE PO SCH (09:00)
[2018-05-11] MEDS: ALBUTEROL SULFATE HFA 90 MCG/PUFF 8 GM INHALER IH SCH ×2 (09:00→16:11)
[2018-05-11 09:38] VITALS: BP 123/77
[2018-05-11] MEDS: MULTIVITAMINS WITH MINERALS, THERAPEUTIC TABLET PO SCH (09:54)
[2018-05-11] MEDS: FOLIC ACID 1 MG TABLET PO SCH (09:54)
[2018-05-11] MEDS: AMIODARONE HCL 200 MG TABLET PO SCH (09:54)
[2018-05-11] MEDS: ATOMOXETINE HCL 10 MG CAPSULE PO SCH (09:54)
[2018-05-11] MEDS: POTASSIUM CHLORIDE 20 MEQ ER TABLET PO SCH ×2 (09:54→16:10)
[2018-05-11] MEDS: FUROSEMIDE 40 MG TABLET PO SCH (09:55)
[2018-05-11] MEDS: HydrOXYzine PAMOATE 25 MG CAPSULE PO SCH ×3 (09:55→16:10)
[2018-05-11] MEDS: OMEPRAZOLE 20 MG CAPSULE PO SCH (09:55)
[2018-05-11] MEDS: HYDROCORTISONE 1% 30 GM OINTMENT TP SCH ×2 (09:55→16:29)
[2018-05-11] MEDS: ASPIRIN 81 MG CHEWABLE TABLET PO SCH (09:55)
[2018-05-11] MEDS: THIAMINE HCL 100 MG TABLET PO SCH ×2 (09:57→16:10)
[2018-05-11] MEDS: OXYMETAZOLINE HCL 0.05% 15 ML NASAL SPRAY NASAL SCH ×2 (10:07→16:11)
[2018-05-11] MEDS: DULoxetine HCL 60 MG CAPSULE PO SCH (10:52)
[2018-05-11] MEDS: PREGABALIN 50 MG CAPSULE PO SCH ×3 (10:52→16:10)
[2018-05-11] MEDS: NALTREXONE HCL 50 MG TABLET PO SCH (10:52)
[2018-05-11] MEDS: ACETAMINOPHEN 325 MG TABLET PO PRN (16:30)
[2018-05-11 16:35] VITALS: BP 121/81
[2018-05-11] MEDS ORDERED: NALT50TA PO (17:04)
[2018-05-11] MEDS ORDERED: ROPI1TAB11 PO (17:04)
[2018-05-11] MEDS ORDERED: ATOM10 PO (17:04)
[2018-05-11] MEDS ORDERED: DULO60CA44 PO (17:04)
[2018-05-11] MEDS ORDERED: MIRT15 PO (17:04)
[2018-05-11] MEDS ORDERED: HYD25 PO (17:04)
[2018-05-11] MEDS ORDERED: PREG50 PO (17:04)
[2018-05-11] MEDS ORDERED: QUET200T29 PO (17:04)
[2018-05-11] MEDS: MIRTAZAPINE 15 MG TABLET PO SCH (20:17)
[2018-05-11] MEDS: QUEtiapine FUMARATE 200 MG TABLET PO SCH (20:18)
[2018-05-11] MEDS: ROPINIRole HCL 1 MG TABLET PO SCH (20:19)
[2018-05-11] MEDS: ZOLPIDEM TARTRATE 10 MG TABLET PO PRN (20:20)
[2018-05-12 06:00] VITALS: BP 126/87
[2018-05-12] MEDS: PREGABALIN 50 MG CAPSULE PO SCH (08:30)
[2018-05-12] MEDS: DOCUSATE SODIUM 100 MG CAPSULE PO SCH (08:30)
[2018-05-12] MEDS: DULoxetine HCL 60 MG CAPSULE PO SCH (08:30)
[2018-05-12] MEDS: FOLIC ACID 1 MG TABLET PO SCH (08:30)
[2018-05-12] MEDS: ASPIRIN 81 MG CHEWABLE TABLET PO SCH (08:31)
[2018-05-12] MEDS: OMEPRAZOLE 20 MG CAPSULE PO SCH (08:31)
[2018-05-12] MEDS: OXYMETAZOLINE HCL 0.05% 15 ML NASAL SPRAY NASAL SCH (08:31)
[2018-05-12] MEDS: POTASSIUM CHLORIDE 20 MEQ ER TABLET PO SCH (08:31)
[2018-05-12] MEDS: NALTREXONE HCL 50 MG TABLET PO SCH (08:31)
[2018-05-12] MEDS: ALBUTEROL SULFATE HFA 90 MCG/PUFF 8 GM INHALER IH SCH (08:31)
[2018-05-12] MEDS: THIAMINE HCL 100 MG TABLET PO SCH (08:31)
[2018-05-12] MEDS: MULTIVITAMINS WITH MINERALS, THERAPEUTIC TABLET PO SCH (08:31)
[2018-05-12] MEDS: HydrOXYzine PAMOATE 25 MG CAPSULE PO SCH (08:31)
[2018-05-12] MEDS: AMIODARONE HCL 200 MG TABLET PO SCH (08:32)
[2018-05-12] MEDS: HYDROCORTISONE 1% 30 GM OINTMENT TP SCH (08:32)
[2018-05-12] MEDS: FUROSEMIDE 40 MG TABLET PO SCH (08:32)
[2018-05-12] MEDS: ATOMOXETINE HCL 10 MG CAPSULE PO SCH (08:33)
[2018-05-12 08:56] VITALS: BP 149/72
[2018-05-12] MEDS ORDERED: FURO40 PO (09:24)
[2018-05-12] MEDS ORDERED: AMIO200T44 PO (09:24)
[2018-05-12] MEDS ORDERED: MIRT15 PO (09:24)
[2018-05-12] MEDS ORDERED: HYDR-4031 PO (09:24)
[2018-05-12] MEDS ORDERED: PREG50 PO (09:24)
[2018-05-12] MEDS ORDERED: KDUR10 PO (09:24)
[2018-05-12] MEDS ORDERED: NALT50TA6 PO (09:24)
[2018-05-12] MEDS ORDERED: ATOM60CA PO (09:24)
[2018-05-12] MEDS ORDERED: ASPI81TA39 PO (09:24)
[2018-05-12] MEDS ORDERED: DSS100 PO (09:24)
[2018-05-12] MEDS ORDERED: ALBU8HFA IH (09:24)
[2018-05-12] MEDS ORDERED: QUET200T PO (09:24)
[2018-05-12] MEDS ORDERED: OMEP20 PO (09:24)
[2018-05-12] MEDS ORDERED: DULO60CA44 PO (09:24)
[2018-05-12] MEDS ORDERED: ROPI1TAB11 PO (09:58)
[2018-05-12 15:24] LABS: GLUCOMETER DEV NAME(LOC) BV2X.; GLUCOSE,POINT OF CARE 194 MG/DL (70-110)
== END 2018-05-12 11:00 | disposition home or self-care (01) | DRG 885 ==
LOC: B2S 14:53
PROVIDERS: ADMIT Psychiatry & Neurology Psychiatry; ATTEND Psychiatry & Neurology Psychiatry
DX: F25.9 Schizoaffective disorder, unspecified (principal); I50.22 Chronic systolic (congestive) heart failure; R45.851 Suicidal ideations; Z68.42 Body mass index [BMI] 45.0-49.9, adult; E78.5 Hyperlipidemia, unspecified; G47.00 Insomnia, unspecified; I11.0 Hypertensive heart disease with heart failure; M19.90 Unspecified osteoarthritis, unspecified site; J44.9 Chronic obstructive pulmonary disease, unspecified; Z96.651 Presence of right artificial knee joint; E66.01 Morbid (severe) obesity due to excess calories; E55.9 Vitamin D deficiency, unspecified; E11.65 Type 2 diabetes mellitus with hyperglycemia; Z87.891 Personal history of nicotine dependence; Z95.810 Presence of automatic (implantable) cardiac defibrillator; Z91.010 Allergy to peanuts; Z91.013 Allergy to seafood; Z91.19 Patient's noncompliance with other medical treatment and regimen
CPT/HCPCS: 83036; 84439; 86592; J3535

== ENCOUNTER 2018-10-31 13:52 | Inpatient (IN) | payer MEDICARE, MEDICAID ==
[~2018-10-31] VITALS: Ht 170.2 cm; Wt 130.0 kg
[~2018-10-31 13:52] MED LIST changes: +ALBU8HFA IH; -ALBU8HFA4 IH; -ARIP15TA2 PO; -ASPI-1182 PO; +ASPI81TA39 PO; +ATOM10 PO; -ATOM40 PO; +ATOM60CA PO; +HYDR-4031 PO; +KDUR10 PO; -KDUR20 PO; -METO-558 PO; +NALT50TA PO; +NALT50TA6 PO; -OXYM30SP27 NASAL; +QUET200T PO; +QUET200T29 PO; +ROPI1TAB11 PO; -ROPI1TAB38 PO; -THIA100T67 PO
[2018-10-31 14:21] LABS: GLUCOSE,POINT OF CARE 146 MG/DL (70-110)
[2018-10-31] MEDS ORDERED: ATOR40TA28 PO (14:25)
[2018-10-31] MEDS ORDERED: ADV250 IH (14:25)
[2018-10-31] MEDS ORDERED: METO50 PO (14:25)
[2018-10-31] MEDS ORDERED: METF-960 PO (14:25)
[2018-10-31] MEDS ORDERED: SLOWK8 PO (14:28)
[2018-10-31 15:27] LABS: EOSINOPHILS % (AUTO) 4.6 % (1.0-6.0); HEMATOCRIT 36.2 % (36-46); HEMOGLOBIN 11.8 g/dL (12.0-16.0); LYMPHOCYTES # (AUTO) 1.9 K/uL (1.0-4.8); LYMPHOCYTES % (AUTO) 28.9 % (22.0-44.0); MEAN CORPUSCULAR HEMOGLOBIN 30.2 pg (26.0-34.0); MEAN CORPUSCULAR HGB CONC 32.7 G/dL (31.0-37.0); MEAN CORPUSCULAR VOLUME 92 fL (80-100); MONOCYTES # (AUTO) 0.6 K/uL (0.1-1.0); MONOCYTES % (AUTO) 8.7 % (2.0-9.0); NEUTROPHILS # (AUTO) 3.8 K/uL (1.8-7.7); NEUTROPHILS % (AUTO) 56.8 % (40.0-70.0); PLATELET COUNT (AUTO) 310 K/uL (150-450); RED BLOOD CELL COUNT(AUTO) 3.92 MIL/uL (4.00-5.20); RED CELL DISTRIBUTION WIDTH 16.2 % (11.5-14.5)
[2018-10-31 15:36] LABS: ANION GAP 6 mmol/L (8-16); CALCIUM, TOTAL 9.6 mg/dL (8.8-10.5); CARBON DIOXIDE 28 mmol/L (22-29); CHLORIDE 101 mmol/L (98-107); CREATININE 1.15 mg/dL (0.60-1.30); GLOMERULAR FILTR. RATE CALC 49 mL/min (>60); GLUCOSE,RANDOM 133 mg/dL (70-110); POTASSIUM 4.1 mmol/L (3.5-5.1); SODIUM SERUM 135 mmol/L (136-145); UREA NITROGEN, BLOOD 14 mg/dL (7-18)
[2018-10-31 15:45] LABS: ALANINE AMINOTRANSFERASE 57 U/L (12-78); ALBUMIN 4.2 g/dL (3.4-5.0); ALKALINE PHOSPHATASE 123 U/L (46-116); ASPARTATE AMINOTRANSFERASE 37 U/L (15-37); BILIRUBIN,TOTAL 0.4 mg/dL (0.1-1.0); TOTAL PROTEIN, SERUM 7.5 g/dL (6.4-8.2)
[2018-10-31] MEDS ORDERED: LORazepam 2 MG TABLET PO PRN (18:45)
[2018-10-31] MEDS ORDERED: ZOLPIDEM TARTRATE 10 MG TABLET PO PRN (18:45)
[2018-10-31] MEDS ORDERED: QUEtiapine FUMARATE 100 MG TABLET PO PRN (18:45)
[2018-10-31 19:59] LABS: AMPHET/METH SCREEN,URINE NEGATIVE (NEGATIVE); BARBITURATE SCREEN, URINE NEGATIVE (NEGATIVE); BENZODIAZEPINES SCREEN,URINE NEGATIVE (NEGATIVE); CANNABINOID SCREEN,URINE NEGATIVE (NEGATIVE); COCAINE SCREEN,URINE NEGATIVE (NEGATIVE); METHADONE SCREEN, URINE NEGATIVE (NEGATIVE); OPIATE SCREEN,URINE NEGATIVE (NEGATIVE)
[2018-10-31 20:01] LABS: PHENCYCLIDINE SCREEN,URINE NEGATIVE (NEGATIVE)
[2018-10-31] MEDS ORDERED: ROPINIRole HCL 1 MG TABLET PO SCH (21:00)
[2018-10-31] MEDS ORDERED: QUEtiapine FUMARATE 200 MG TABLET PO SCH (21:00)
[2018-10-31 21:27] VITALS: BP 125/77
[2018-10-31] MEDS ORDERED: DEXTROSE 50%-WATER 25 GM/50 ML SYRINGE IVP PRN (22:30)
[2018-10-31] MEDS: HydrOXYzine PAMOATE 25 MG CAPSULE PO SCH (22:53)
[2018-10-31] MEDS: MIRTAZAPINE 15 MG TABLET PO SCH (22:53)
[2018-11-01 05:31] LABS: GLUCOMETER DEV NAME(LOC) 3E.I; GLUCOSE,POINT OF CARE 115 MG/DL (70-110)
[2018-11-01] MEDS: ASPIRIN 81 MG CHEWABLE TABLET PO SCH (08:25)
[2018-11-01] MEDS: OMEPRAZOLE 20 MG CAPSULE PO SCH (08:25)
[2018-11-01] MEDS: DOCUSATE SODIUM 100 MG CAPSULE PO SCH (08:25)
[2018-11-01] MEDS: ATOMOXETINE HCL 10 MG CAPSULE PO SCH (08:26)
[2018-11-01] MEDS: HydrOXYzine PAMOATE 25 MG CAPSULE PO SCH ×3 (08:27→16:37)
[2018-11-01] MEDS: POTASSIUM CHLORIDE 8 MEQ ER TABLET PO SCH (08:28)
[2018-11-01] MEDS: AMIODARONE HCL 200 MG TABLET PO SCH (08:28)
[2018-11-01] MEDS: ATORVASTATIN CALCIUM 40 MG TABLET PO SCH (08:29)
[2018-11-01] MEDS: FUROSEMIDE 40 MG TABLET PO SCH (08:29)
[2018-11-01] MEDS: FLUTICASONE/VILANTEROL 100-25 MCG/INH INHALER [14] IH SCH (08:30)
[2018-11-01] MEDS: ALBUTEROL SULFATE HFA 90 MCG/PUFF 8 GM INHALER IH SCH ×2 (08:30→16:37)
[2018-11-01] MEDS: MetFORMIN HCL 500 MG TABLET PO SCH ×2 (08:32→16:43)
[2018-11-01] MEDS ORDERED: ROPINIRole HCL 1 MG TABLET PO SCH (09:00)
[2018-11-01 11:25] VITALS: BP 141/93
[2018-11-01 11:25] LABS: GLUCOMETER DEV NAME(LOC) 3EX.; GLUCOSE,POINT OF CARE 100 MG/DL (70-110)
[2018-11-01] MEDS ORDERED: TUBERCULIN, PURIFIED PROTEIN DERIVATIVE 5 TU/0.1 ML SYRINGE ID ONE (13:00)
[2018-11-01] MEDS ORDERED: LOPERAMIDE HCL 2 MG CAPSULE PO PRN (13:00)
[2018-11-01] MEDS ORDERED: HydrOXYzine PAMOATE 50 MG CAPSULE PO PRN (13:00)
[2018-11-01] MEDS ORDERED: MAGNESIUM HYDROXIDE SUSPENSION 30 ML UDCUP PO PRN (13:00)
[2018-11-01] MEDS ORDERED: GuaiFENesin/D-METHORPHAN [SUGAR-FREE] 200-20MG/10 ML SYRUP UDCUP PO PRN (13:00)
[2018-11-01] MEDS ORDERED: MAG HYDROX/AL HYDROX/SIMETH ES 30 ML SUSPENSION UDCUP PO PRN (13:00)
[2018-11-01] MEDS ORDERED: PROMETHAZINE HCL 25 MG TABLET PO PRN (13:00)
[2018-11-01] MEDS: METOPROLOL SUCCINATE 50 MG ER TABLET PO SCH (13:48)
[2018-11-01] MEDS: INSULIN LISPRO 100 UNITS/ML SQ PRN (14:46)
[2018-11-01] MEDS: THIAMINE HCL 100 MG TABLET PO SCH (16:37)
[2018-11-01 16:55] LABS: GLUCOMETER DEV NAME(LOC) 3EX.; GLUCOSE,POINT OF CARE 105 MG/DL (70-110)
[2018-11-01 17:26] VITALS: BP 119/72
[2018-11-01] MEDS: MIRTAZAPINE 15 MG TABLET PO SCH (20:26)
[2018-11-01] MEDS: QUEtiapine FUMARATE 200 MG TABLET PO SCH (20:26)
[2018-11-01] MEDS: PRAZOSIN HCL 1 MG CAPSULE PO SCH (20:26)
[2018-11-01 20:44] VITALS: BP 124/73
[2018-11-01 20:51] LABS: GLUCOMETER DEV NAME(LOC) 3EX.; GLUCOSE,POINT OF CARE 88 MG/DL (70-110)
[2018-11-02] MEDS: INSULIN LISPRO 100 UNITS/ML SQ PRN ×2 (06:20→12:45)
[2018-11-02 06:36] LABS: GLUCOMETER DEV NAME(LOC) 3E.I; GLUCOSE,POINT OF CARE 146 MG/DL (70-110)
[2018-11-02 06:50] LABS: HEMOGLOBIN A1C 5.9 % (4.5-6.2)
[2018-11-02 07:05] LABS: FREE T4 (FREE THYROXINE) 0.94 ng/dL (0.76-1.46); THYROID STIMULATING HORMONE 3.02 uIU/mL (0.36-3.74)
[2018-11-02] MEDS: MetFORMIN HCL 500 MG TABLET PO SCH ×2 (07:14→17:03)
[2018-11-02] MEDS: MULTIVITAMINS WITH MINERALS, THERAPEUTIC TABLET PO SCH (08:09)
[2018-11-02] MEDS: OMEPRAZOLE 20 MG CAPSULE PO SCH (08:10)
[2018-11-02] MEDS: ASPIRIN 81 MG CHEWABLE TABLET PO SCH (08:10)
[2018-11-02] MEDS: DOCUSATE SODIUM 100 MG CAPSULE PO SCH (08:10)
[2018-11-02] MEDS: ALBUTEROL SULFATE HFA 90 MCG/PUFF 8 GM INHALER IH SCH ×2 (08:10→17:03)
[2018-11-02] MEDS: ATOMOXETINE HCL 10 MG CAPSULE PO SCH (08:11)
[2018-11-02] MEDS: POTASSIUM CHLORIDE 8 MEQ ER TABLET PO SCH (08:11)
[2018-11-02] MEDS: METOPROLOL SUCCINATE 50 MG ER TABLET PO SCH (08:12)
[2018-11-02] MEDS: ATORVASTATIN CALCIUM 40 MG TABLET PO SCH (08:12)
[2018-11-02] MEDS: FOLIC ACID 1 MG TABLET PO SCH (08:12)
[2018-11-02] MEDS: AMIODARONE HCL 200 MG TABLET PO SCH (08:13)
[2018-11-02] MEDS: HydrOXYzine PAMOATE 25 MG CAPSULE PO SCH ×3 (08:13→17:03)
[2018-11-02] MEDS: FUROSEMIDE 40 MG TABLET PO SCH (08:13)
[2018-11-02] MEDS: THIAMINE HCL 100 MG TABLET PO SCH ×2 (08:13→17:03)
[2018-11-02 09:00] VITALS: BP 112/76
[2018-11-02] MEDS: FLUTICASONE/VILANTEROL 100-25 MCG/INH INHALER [14] IH SCH (11:29)
[2018-11-02 12:30] LABS: GLUCOMETER DEV NAME(LOC) 3EX.; GLUCOSE,POINT OF CARE 99 MG/DL (70-110)
[2018-11-02] MEDS: MUPIROCIN CALCIUM 2% 22 GM OINTMENT NASAL SCH (17:03)
[2018-11-02 17:20] LABS: GLUCOMETER DEV NAME(LOC) 3EX.; GLUCOSE,POINT OF CARE 89 MG/DL (70-110)
[2018-11-02 17:45] VITALS: BP 132/76
[2018-11-02] MEDS: QUEtiapine FUMARATE 200 MG TABLET PO SCH (20:31)
[2018-11-02] MEDS: PRAZOSIN HCL 1 MG CAPSULE PO SCH (20:31)
[2018-11-02] MEDS: MIRTAZAPINE 15 MG TABLET PO SCH (20:31)
[2018-11-02 21:31] LABS: GLUCOMETER DEV NAME(LOC) 3EX.; GLUCOSE,POINT OF CARE 111 MG/DL (70-110)
[2018-11-03 05:41] LABS: GLUCOMETER DEV NAME(LOC) 3E.I; GLUCOSE,POINT OF CARE 106 MG/DL (70-110)
[2018-11-03] MEDS: INSULIN LISPRO 100 UNITS/ML SQ PRN (06:45)
[2018-11-03] MEDS: MetFORMIN HCL 500 MG TABLET PO SCH ×2 (07:28→17:45)
[2018-11-03 08:00] VITALS: BP 132/81
[2018-11-03] MEDS: ALBUTEROL SULFATE HFA 90 MCG/PUFF 8 GM INHALER IH SCH ×2 (08:57→16:33)
[2018-11-03] MEDS: ATOMOXETINE HCL 10 MG CAPSULE PO SCH (08:58)
[2018-11-03] MEDS: FLUTICASONE/VILANTEROL 100-25 MCG/INH INHALER [14] IH SCH (08:58)
[2018-11-03] MEDS: MUPIROCIN CALCIUM 2% 22 GM OINTMENT NASAL SCH ×2 (08:58→16:33)
[2018-11-03] MEDS: POTASSIUM CHLORIDE 8 MEQ ER TABLET PO SCH (08:59)
[2018-11-03] MEDS: FOLIC ACID 1 MG TABLET PO SCH (08:59)
[2018-11-03] MEDS: THIAMINE HCL 100 MG TABLET PO SCH ×2 (08:59→16:32)
[2018-11-03] MEDS: MULTIVITAMINS WITH MINERALS, THERAPEUTIC TABLET PO SCH (09:00)
[2018-11-03] MEDS: DOCUSATE SODIUM 100 MG CAPSULE PO SCH (09:00)
[2018-11-03] MEDS: AMIODARONE HCL 200 MG TABLET PO SCH (09:00)
[2018-11-03] MEDS: ASPIRIN 81 MG CHEWABLE TABLET PO SCH (09:00)
[2018-11-03] MEDS: FUROSEMIDE 40 MG TABLET PO SCH (09:00)
[2018-11-03] MEDS: HydrOXYzine PAMOATE 25 MG CAPSULE PO SCH ×3 (09:00→16:33)
[2018-11-03] MEDS: METOPROLOL SUCCINATE 50 MG ER TABLET PO SCH (09:00)
[2018-11-03] MEDS: ATORVASTATIN CALCIUM 40 MG TABLET PO SCH (09:02)
[2018-11-03] MEDS: OMEPRAZOLE 20 MG CAPSULE PO SCH (09:03)
[2018-11-03] MEDS: DENTURE CLEANSER TABLET [8'S] DT PRN (09:12)
[2018-11-03 11:15] LABS: GLUCOMETER DEV NAME(LOC) 3EX.; GLUCOSE,POINT OF CARE 98 MG/DL (70-110)
[2018-11-03 13:16] VITALS: BP 144/99
[2018-11-03] MEDS: ACETAMINOPHEN 325 MG TABLET PO PRN (13:16)
[2018-11-03 16:36] LABS: GLUCOMETER DEV NAME(LOC) 3EX.; GLUCOSE,POINT OF CARE 107 MG/DL (70-110)
[2018-11-03 16:46] VITALS: BP 126/67
[2018-11-03] MEDS: MIRTAZAPINE 15 MG TABLET PO SCH (20:31)
[2018-11-03] MEDS: PRAZOSIN HCL 1 MG CAPSULE PO SCH (20:31)
[2018-11-03] MEDS: QUEtiapine FUMARATE 200 MG TABLET PO SCH (20:31)
[2018-11-03 20:45] LABS: GLUCOMETER DEV NAME(LOC) 3EX.; GLUCOSE,POINT OF CARE 106 MG/DL (70-110)
[2018-11-04 05:35] LABS: GLUCOMETER DEV NAME(LOC) 3E.I; GLUCOSE,POINT OF CARE 138 MG/DL (70-110)
[2018-11-04] MEDS: MetFORMIN HCL 500 MG TABLET PO SCH ×2 (06:53→16:46)
[2018-11-04] MEDS: ALBUTEROL SULFATE HFA 90 MCG/PUFF 8 GM INHALER IH SCH ×2 (09:43→16:46)
[2018-11-04] MEDS: FLUTICASONE/VILANTEROL 100-25 MCG/INH INHALER [14] IH SCH (09:43)
[2018-11-04] MEDS: MUPIROCIN CALCIUM 2% 22 GM OINTMENT NASAL SCH ×2 (09:44→16:46)
[2018-11-04] MEDS: AMIODARONE HCL 200 MG TABLET PO SCH (09:46)
[2018-11-04] MEDS: FOLIC ACID 1 MG TABLET PO SCH (09:46)
[2018-11-04] MEDS: THIAMINE HCL 100 MG TABLET PO SCH ×2 (09:46→16:46)
[2018-11-04] MEDS: ATORVASTATIN CALCIUM 40 MG TABLET PO SCH (09:46)
[2018-11-04] MEDS: HydrOXYzine PAMOATE 25 MG CAPSULE PO SCH ×3 (09:46→16:46)
[2018-11-04] MEDS: FUROSEMIDE 40 MG TABLET PO SCH (09:46)
[2018-11-04] MEDS: POTASSIUM CHLORIDE 8 MEQ ER TABLET PO SCH (09:46)
[2018-11-04] MEDS: METOPROLOL SUCCINATE 50 MG ER TABLET PO SCH (09:47)
[2018-11-04 09:48] VITALS: BP 142/90
[2018-11-04] MEDS: DOCUSATE SODIUM 100 MG CAPSULE PO SCH (09:49)
[2018-11-04] MEDS: MULTIVITAMINS WITH MINERALS, THERAPEUTIC TABLET PO SCH (09:49)
[2018-11-04] MEDS: OMEPRAZOLE 20 MG CAPSULE PO SCH (09:49)
[2018-11-04] MEDS: ASPIRIN 81 MG CHEWABLE TABLET PO SCH (09:49)
[2018-11-04] MEDS: ATOMOXETINE HCL 10 MG CAPSULE PO SCH (09:50)
[2018-11-04 11:20] LABS: GLUCOMETER DEV NAME(LOC) 3EX.; GLUCOSE,POINT OF CARE 119 MG/DL (70-110)
[2018-11-04 17:00] VITALS: BP 122/81
[2018-11-04 17:01] LABS: GLUCOMETER DEV NAME(LOC) 3EX.; GLUCOSE,POINT OF CARE 101 MG/DL (70-110)
[2018-11-04] MEDS ORDERED: KETOROLAC TROMETHAMINE 30 MG/ML VIAL IM ONE (19:30)
[2018-11-04] MEDS ORDERED: KETOROLAC TROMETHAMINE 60 MG/2 ML VIAL IM ONE (19:45)
[2018-11-04] MEDS: MIRTAZAPINE 15 MG TABLET PO SCH (20:32)
[2018-11-04] MEDS: QUEtiapine FUMARATE 200 MG TABLET PO SCH (20:32)
[2018-11-04] MEDS: PRAZOSIN HCL 1 MG CAPSULE PO SCH (20:32)
[2018-11-04] MEDS: DENTURE CLEANSER TABLET [8'S] DT PRN (20:34)
[2018-11-04 21:41] LABS: GLUCOMETER DEV NAME(LOC) 3EX.; GLUCOSE,POINT OF CARE 98 MG/DL (70-110)
[2018-11-05 05:51] LABS: GLUCOMETER DEV NAME(LOC) 3EX.; GLUCOSE,POINT OF CARE 107 MG/DL (70-110)
[2018-11-05] MEDS: MetFORMIN HCL 500 MG TABLET PO SCH ×2 (07:05→17:03)
[2018-11-05 08:23] VITALS: BP 131/77
[2018-11-05] MEDS: FLUTICASONE/VILANTEROL 100-25 MCG/INH INHALER [14] IH SCH (08:50)
[2018-11-05] MEDS: MUPIROCIN CALCIUM 2% 22 GM OINTMENT NASAL SCH ×2 (08:51→17:03)
[2018-11-05] MEDS: ALBUTEROL SULFATE HFA 90 MCG/PUFF 8 GM INHALER IH SCH ×2 (08:51→17:03)
[2018-11-05] MEDS: DOCUSATE SODIUM 100 MG CAPSULE PO SCH (08:56)
[2018-11-05] MEDS: OMEPRAZOLE 20 MG CAPSULE PO SCH (08:56)
[2018-11-05] MEDS: METOPROLOL SUCCINATE 50 MG ER TABLET PO SCH (08:56)
[2018-11-05] MEDS: THIAMINE HCL 100 MG TABLET PO SCH ×2 (08:56→17:03)
[2018-11-05] MEDS: AMIODARONE HCL 200 MG TABLET PO SCH (08:56)
[2018-11-05] MEDS: FUROSEMIDE 40 MG TABLET PO SCH (08:56)
[2018-11-05] MEDS: HydrOXYzine PAMOATE 25 MG CAPSULE PO SCH ×3 (08:56→17:03)
[2018-11-05] MEDS: MULTIVITAMINS WITH MINERALS, THERAPEUTIC TABLET PO SCH (08:56)
[2018-11-05] MEDS: ATORVASTATIN CALCIUM 40 MG TABLET PO SCH (08:56)
[2018-11-05] MEDS: ASPIRIN 81 MG CHEWABLE TABLET PO SCH (08:56)
[2018-11-05] MEDS: FOLIC ACID 1 MG TABLET PO SCH (08:56)
[2018-11-05] MEDS: POTASSIUM CHLORIDE 8 MEQ ER TABLET PO SCH (08:56)
[2018-11-05] MEDS: ATOMOXETINE HCL 10 MG CAPSULE PO SCH (08:57)
[2018-11-05 11:15] LABS: GLUCOMETER DEV NAME(LOC) 3EX.; GLUCOSE,POINT OF CARE 112 MG/DL (70-110)
[2018-11-05 17:26] LABS: GLUCOMETER DEV NAME(LOC) 3EX.; GLUCOSE,POINT OF CARE 108 MG/DL (70-110)
[2018-11-05] MEDS: DENTURE CLEANSER TABLET [8'S] DT PRN (19:39)
[2018-11-05] MEDS: PRAZOSIN HCL 1 MG CAPSULE PO SCH (21:01)
[2018-11-05] MEDS: QUEtiapine FUMARATE 200 MG TABLET PO SCH (21:01)
[2018-11-05] MEDS: MIRTAZAPINE 15 MG TABLET PO SCH (21:01)
[2018-11-05 21:05] VITALS: BP 128/75
[2018-11-05 21:26] LABS: GLUCOMETER DEV NAME(LOC) 3EX.; GLUCOSE,POINT OF CARE 128 MG/DL (70-110)
[2018-11-06 05:52] LABS: GLUCOMETER DEV NAME(LOC) 3EX.; GLUCOSE,POINT OF CARE 128 MG/DL (70-110)
[2018-11-06] MEDS: MetFORMIN HCL 500 MG TABLET PO SCH ×2 (06:56→17:28)
[2018-11-06] MEDS: FUROSEMIDE 40 MG TABLET PO SCH (08:21)
[2018-11-06] MEDS: ATOMOXETINE HCL 10 MG CAPSULE PO SCH (08:21)
[2018-11-06] MEDS: AMIODARONE HCL 200 MG TABLET PO SCH (08:21)
[2018-11-06] MEDS: HydrOXYzine PAMOATE 25 MG CAPSULE PO SCH ×3 (08:22→17:28)
[2018-11-06] MEDS: FOLIC ACID 1 MG TABLET PO SCH (08:22)
[2018-11-06] MEDS: THIAMINE HCL 100 MG TABLET PO SCH ×2 (08:22→17:28)
[2018-11-06] MEDS: OMEPRAZOLE 20 MG CAPSULE PO SCH (08:22)
[2018-11-06] MEDS: ATORVASTATIN CALCIUM 40 MG TABLET PO SCH (08:22)
[2018-11-06] MEDS: METOPROLOL SUCCINATE 50 MG ER TABLET PO SCH (08:22)
[2018-11-06] MEDS: MULTIVITAMINS WITH MINERALS, THERAPEUTIC TABLET PO SCH (08:22)
[2018-11-06] MEDS: ASPIRIN 81 MG CHEWABLE TABLET PO SCH (08:22)
[2018-11-06] MEDS: DOCUSATE SODIUM 100 MG CAPSULE PO SCH (08:22)
[2018-11-06] MEDS: POTASSIUM CHLORIDE 8 MEQ ER TABLET PO SCH (08:22)
[2018-11-06] MEDS: MUPIROCIN CALCIUM 2% 22 GM OINTMENT NASAL SCH ×2 (08:27→17:29)
[2018-11-06] MEDS: ALBUTEROL SULFATE HFA 90 MCG/PUFF 8 GM INHALER IH SCH ×2 (08:27→17:28)
[2018-11-06] MEDS: FLUTICASONE/VILANTEROL 100-25 MCG/INH INHALER [14] IH SCH (08:27)
[2018-11-06 10:33] VITALS: BP 136/70
[2018-11-06] MEDS: INSULIN LISPRO 100 UNITS/ML SQ PRN ×2 (11:46→17:32)
[2018-11-06 11:56] LABS: GLUCOMETER DEV NAME(LOC) 3EX.; GLUCOSE,POINT OF CARE 85 MG/DL (70-110)
[2018-11-06 15:13] VITALS: BP 113/57
[2018-11-06] MEDS: ACETAMINOPHEN 325 MG TABLET PO PRN (15:16)
[2018-11-06 16:36] LABS: GLUCOMETER DEV NAME(LOC) 3EX.; GLUCOSE,POINT OF CARE 122 MG/DL (70-110)
[2018-11-06] MEDS ORDERED: QUET200T29 PO (17:25)
[2018-11-06] MEDS ORDERED: MIRT15 PO (17:25)
[2018-11-06] MEDS ORDERED: ATOM10 PO (17:25)
[2018-11-06] MEDS ORDERED: PRAZ1 PO (17:25)
[2018-11-06] MEDS ORDERED: ROPI2 PO (17:25)
[2018-11-06 20:30] VITALS: BP 139/89
[2018-11-06] MEDS: QUEtiapine FUMARATE 200 MG TABLET PO SCH (20:45)
[2018-11-06] MEDS: PRAZOSIN HCL 1 MG CAPSULE PO SCH (20:45)
[2018-11-06] MEDS: MIRTAZAPINE 15 MG TABLET PO SCH (20:45)
[2018-11-06 20:51] LABS: GLUCOMETER DEV NAME(LOC) 3EX.; GLUCOSE,POINT OF CARE 94 MG/DL (70-110)
[2018-11-07 05:37] LABS: GLUCOMETER DEV NAME(LOC) 3E.I; GLUCOSE,POINT OF CARE 117 MG/DL (70-110)
[2018-11-07] MEDS: MetFORMIN HCL 500 MG TABLET PO SCH (06:48)
[2018-11-07 08:21] VITALS: BP 121/76
[2018-11-07] MEDS: FLUTICASONE/VILANTEROL 100-25 MCG/INH INHALER [14] IH SCH (08:38)
[2018-11-07] MEDS: HydrOXYzine PAMOATE 25 MG CAPSULE PO SCH (08:39)
[2018-11-07] MEDS: POTASSIUM CHLORIDE 8 MEQ ER TABLET PO SCH (08:39)
[2018-11-07] MEDS: ALBUTEROL SULFATE HFA 90 MCG/PUFF 8 GM INHALER IH SCH (08:39)
[2018-11-07] MEDS: MULTIVITAMINS WITH MINERALS, THERAPEUTIC TABLET PO SCH (08:40)
[2018-11-07] MEDS: MUPIROCIN CALCIUM 2% 22 GM OINTMENT NASAL SCH (08:40)
[2018-11-07] MEDS: ATORVASTATIN CALCIUM 40 MG TABLET PO SCH (08:40)
[2018-11-07] MEDS: ASPIRIN 81 MG CHEWABLE TABLET PO SCH (08:40)
[2018-11-07] MEDS: AMIODARONE HCL 200 MG TABLET PO SCH (08:40)
[2018-11-07] MEDS: THIAMINE HCL 100 MG TABLET PO SCH (08:40)
[2018-11-07] MEDS: FOLIC ACID 1 MG TABLET PO SCH (08:40)
[2018-11-07] MEDS: OMEPRAZOLE 20 MG CAPSULE PO SCH (08:40)
[2018-11-07] MEDS: METOPROLOL SUCCINATE 50 MG ER TABLET PO SCH (08:41)
[2018-11-07] MEDS: DOCUSATE SODIUM 100 MG CAPSULE PO SCH (08:41)
[2018-11-07] MEDS: FUROSEMIDE 40 MG TABLET PO SCH (08:41)
[2018-11-07] MEDS: ATOMOXETINE HCL 10 MG CAPSULE PO SCH (09:19)
[2018-11-07] MEDS ORDERED: FLUT1AER IH (10:48)
[2018-11-07] MEDS ORDERED: METO-558 PO (10:50)
[2018-11-07] MEDS ORDERED: MUPI1OIN5 NASAL (10:51)
[2018-11-07] MEDS ORDERED: OMEP20 PO (10:52)
[2018-11-07] MEDS ORDERED: METF-960 PO (11:10)
== END 2018-11-07 11:20 | disposition home or self-care (01) | DRG 885 ==
LOC: EMS 13:53 → 3EX 19:30
PROVIDERS: ADMIT Psychiatry & Neurology Psychiatry; ATTEND Psychiatry & Neurology Psychiatry
DX: F25.1 Schizoaffective disorder, depressive type (principal); I11.0 Hypertensive heart disease with heart failure; E11.65 Type 2 diabetes mellitus with hyperglycemia; I50.22 Chronic systolic (congestive) heart failure; R45.851 Suicidal ideations; G47.00 Insomnia, unspecified; G89.29 Other chronic pain; J44.9 Chronic obstructive pulmonary disease, unspecified; M19.90 Unspecified osteoarthritis, unspecified site; F43.10 Post-traumatic stress disorder, unspecified; F90.0 Attention-deficit hyperactivity disorder, predominantly inattentive type; E55.9 Vitamin D deficiency, unspecified; E66.01 Morbid (severe) obesity due to excess calories; E78.00 Pure hypercholesterolemia, unspecified; E78.5 Hyperlipidemia, unspecified; Z96.651 Presence of right artificial knee joint; Z79.84 Long term (current) use of oral hypoglycemic drugs; Z82.49 Family history of ischemic heart disease and other diseases of the circulatory system; Z79.51 Long term (current) use of inhaled steroids; Z79.82 Long term (current) use of aspirin; Z86.59 Personal history of other mental and behavioral disorders; Z87.891 Personal history of nicotine dependence; Z91.19 Patient's noncompliance with other medical treatment and regimen; Z95.810 Presence of automatic (implantable) cardiac defibrillator; Z79.899 Other long term (current) drug therapy
CPT/HCPCS: 83036; 84439; 84443; 87081; 93005; G0378; G0480; J1885; J3535

== ENCOUNTER 2021-04-06 10:06 | Emergency (ER) | payer MEDICARE, OTHER ==
[~2021-04-06] VITALS: Ht 170.2 cm; Wt 100.9 kg
[~2021-04-06 10:06] MED LIST changes: +ACYC-138 PO; -AMIO200T44 PO; +AMIO200T68 PO; -ATOM10 PO; +ATOM10CA4 PO; -ATOM60CA PO; +ATOR40TA28 PO; -DULO60CA44 PO; +FLUT1AER IH; +FLUT1DIS6 IH; -HYD25 PO; -HYDR-4031 PO; -KDUR10 PO; +METF-1211 PO; +METO-558 PO; +MIRT-89 PO; -MIRT15 PO; +MUPI1OIN5 NASAL; -NALT50TA PO; -NALT50TA6 PO; +POTA8TAB71 PO; +PRAZ1 PO; -PREG50 PO; -QUET200T PO; -QUET200T29 PO; +QUET200T30 PO; -ROPI1TAB11 PO; +ROPI2TAB26 PO
[2021-04-06 11:11] LABS: BASOPHILS % (AUTO) 1.1 % (0.0-2.0); EOSINOPHILS % (AUTO) 5.3 % (1.0-6.0); HEMATOCRIT 31.3 % (36-46); HEMOGLOBIN 10.1 g/dL (12.0-16.0); LYMPHOCYTES # (AUTO) 1.2 K/uL (1.0-4.8); LYMPHOCYTES % (AUTO) 18.5 % (22.0-44.0); MEAN CORPUSCULAR HEMOGLOBIN 26.4 pg (26.0-34.0); MEAN CORPUSCULAR HGB CONC 32.1 G/dL (31.0-37.0); MEAN CORPUSCULAR VOLUME 82 fL (80-100); MONOCYTES # (AUTO) 0.6 K/uL (0.1-1.0); MONOCYTES % (AUTO) 10.1 % (2.0-9.0); NEUTROPHILS # (AUTO) 4.1 K/uL (1.8-7.7); PLATELET COUNT (AUTO) 351 K/uL (150-450); RED BLOOD CELL COUNT(AUTO) 3.81 MIL/uL (4.00-5.20); RED CELL DISTRIBUTION WIDTH 19.6 % (11.5-14.5)
[2021-04-06 11:18] LABS: CALCIUM, TOTAL 8.8 mg/dL (8.8-10.5); CREATININE 1.25 mg/dL (0.60-1.30); POTASSIUM 4.1 mmol/L (3.5-5.1)
[2021-04-06 11:22] LABS: PROTHROMBIN TIME 10.8 SEC (9.4-11.6)
[2021-04-06 11:24] LABS: BILIRUBIN,TOTAL 0.4 mg/dL (0.1-1.0); TOTAL PROTEIN, SERUM 7.4 g/dL (6.4-8.2)
[2021-04-06 12:19] LABS: APPEARANCE,URINE CLOUDY (CLEAR); BILIRUBIN,URINE NEGATIVE (NEGATIVE); GLUCOSE, URINE (UA) NEGATIVE (NEGATIVE); KETONES,URINE NEGATIVE (NEGATIVE); LEUKOCYTE ESTERASE ,URINE SMALL (NEGATIVE); NITRATE,URINE NEGATIVE (NEGATIVE); OCCULT BLOOD,URINE NEGATIVE (NEGATIVE); PH,URINE 6.5 (5.0-8.0); PROTEIN,URINE TRACE (NEGATIVE); UROBILINOGEN,URINE 0.2 mg/dL (<=1.0)
[2021-04-06 12:32] LABS: BACTERIA,URINE Few /HPF (None Seen); RBC,URINE None Seen /HPF (0-2); SQUAMOUS EPITHELIAL CELL,UR Few /LPF (None Seen); STARCH,URINE Few /LPF (None Seen)
[2021-04-06 15:01] VITALS: BP 116/74
== END 2021-04-06 15:05 | disposition home or self-care (01) ==
LOC: EMS 10:09
DX: R07.89 Other chest pain (principal); I11.0 Hypertensive heart disease with heart failure; I50.9 Heart failure, unspecified; E11.9 Type 2 diabetes mellitus without complications; E78.00 Pure hypercholesterolemia, unspecified; F31.9 Bipolar disorder, unspecified; Z79.84 Long term (current) use of oral hypoglycemic drugs; Z79.82 Long term (current) use of aspirin; Z79.899 Other long term (current) drug therapy; Z88.8 Allergy status to other drugs, medicaments and biological substances
CPT/HCPCS: 71045; 80053; 81001; 82550; 83880; 84484; 85025; 85610; 85730; 93005; 99285; 36415-L1; 36415-TC

== ENCOUNTER → 2021-04-08 | Outpatient (CLI) | payer MEDICARE, OTHER ==
[2021-04-08 14:14] LABS: HEMOGLOBIN A1C 7.6 % (3.8-5.6)
[2021-04-08 14:19] LABS: CHOL/HDL RATIO 3.6 (3.9-5.7)
== END | disposition home or self-care (01) ==
LOC: LABPV 13:15
PROVIDERS: ATTEND Psychiatry & Neurology Psychiatry
DX: F25.1 Schizoaffective disorder, depressive type (principal); Z79.899 Other long term (current) drug therapy
CPT/HCPCS: 80061; 82947; 83036

== ENCOUNTER 2023-04-15 13:30 | Inpatient (IN) | payer MEDICARE, MEDICAID ==
[~2023-04-15] VITALS: Ht 170.2 cm; Wt 210.5 kg
[~2023-04-15 13:30] MED LIST changes: -ACYC-138 PO; -ALBU8HFA IH; -ASPI81TA39 PO; -ATOM10CA4 PO; +ATOM60CA7 PO; -DSS100 PO; +DULO-113 PO; -FLUT1DIS6 IH; +FURO20 PO; -FURO40 PO; +MELA5TAB40 PO; -METF-1211 PO; -MIRT-89 PO; +MIRT-93 PO; -MUPI1OIN5 NASAL; +NALT50TA PO; -POTA8TAB71 PO; -PRAZ1 PO; +PRAZ2 PO; +TOPI100T37 PO; +TRAZ-257 PO
[2023-04-15] MEDS ORDERED: GuaiFENesin/D-METHORPHAN [SUGAR-FREE] 200-20MG/10 ML SYRUP UDCUP PO PRN (13:45)
[2023-04-15] MEDS ORDERED: MAG HYDROX/ALUMINUM HYD/SIMETH ES 30 ML SUSPENSION UDCUP PO PRN (13:45)
[2023-04-15] MEDS ORDERED: QUEtiapine FUMARATE 100 MG TABLET PO PRN (13:45)
[2023-04-15] MEDS ORDERED: HydrOXYzine PAMOATE 50 MG CAPSULE PO PRN (13:45)
[2023-04-15] MEDS ORDERED: MAGNESIUM HYDROXIDE SUSPENSION 30 ML UDCUP PO PRN (13:45)
[2023-04-15] MEDS ORDERED: TUBERCULIN, PURIFIED PROTEIN DERIVATIVE 5 TU/0.1 ML SYRINGE ID ONE (13:45)
[2023-04-15] MEDS ORDERED: LORazepam 2 MG TABLET PO PRN (13:45)
[2023-04-15] MEDS ORDERED: LOPERAMIDE HCL 2 MG CAPSULE PO PRN (13:45)
[2023-04-15] MEDS ORDERED: ZOLPIDEM TARTRATE 10 MG TABLET PO PRN (13:45)
[2023-04-15] MEDS ORDERED: PROMETHAZINE HCL 25 MG TABLET PO PRN (13:45)
[2023-04-15 14:36] VITALS: BP 121/78; PULSE 89; RESP 18; TEMP 96.8
[2023-04-15 14:38] LABS: GLUCOMETER DEV NAME(LOC) POC.BV; POC SARS-COV2 AG, FIA NEGATIVE (NEGATIVE)
[2023-04-15 16:38] LABS: GLUCOMETER DEV NAME(LOC) BV2S.; GLUCOSE,POINT OF CARE 241 MG/DL (70-110)
[2023-04-15 16:49] VITALS: BP 132/80; PULSE 78; RESP 18; TEMP 97.4; O2SAT 97
[2023-04-15] MEDS: TOPIRAMATE 25 MG TABLET PO SCH (17:59)
[2023-04-15] MEDS: THIAMINE 100 MG TABLET PO SCH (17:59)
[2023-04-15 20:23] VITALS: BP 135/82; PULSE 72; RESP 18; TEMP 98; O2SAT 98
[2023-04-15] MEDS ORDERED: GLUCAGON,HUMAN RECOMBINANT 1 MG VIAL IM PRN (20:30)
[2023-04-15] MEDS: PRAZOSIN HCL 1 MG CAPSULE PO SCH (21:34)
[2023-04-15] MEDS: ROPINIRole HCL 1 MG TABLET PO SCH (21:34)
[2023-04-15] MEDS: MIRTAZAPINE 30 MG TABLET PO SCH (21:34)
[2023-04-15] MEDS: TraZODone HCL 100 MG TABLET PO SCH (21:35)
[2023-04-15] MEDS: MELATONIN 5 MG TABLET PO SCH (21:35)
[2023-04-15] MEDS: QUEtiapine FUMARATE 200 MG TABLET PO SCH (21:35)
[2023-04-16] MEDS: MetFORMIN HCL 500 MG TABLET PO SCH (06:12)
[2023-04-16] MEDS: INSULIN LISPRO 100 UNITS/ML SQ PRN (06:40)
[2023-04-16 06:47] LABS: GLUCOMETER DEV NAME(LOC) BV2S.; GLUCOSE,POINT OF CARE 173 MG/DL (70-110)
[2023-04-16 07:46] LABS: BASOPHILS % (AUTO) 0.6 % (0.0-2.0); HEMATOCRIT 31.2 % (36-46); HEMOGLOBIN 10.7 g/dL (12.0-16.0); LYMPHOCYTES # (AUTO) 1.4 K/uL (1.0-4.8); LYMPHOCYTES % (AUTO) 21.2 % (22.0-44.0); MEAN CORPUSCULAR HEMOGLOBIN 33.9 pg (26.0-34.0); MEAN CORPUSCULAR HGB CONC 34.1 G/dL (31.0-37.0); MEAN CORPUSCULAR VOLUME 99 fL (80-100); MONOCYTES # (AUTO) 0.6 K/uL (0.1-1.0); MONOCYTES % (AUTO) 9.2 % (2.0-9.0); NEUTROPHILS # (AUTO) 4.2 K/uL (1.8-7.7); PLATELET COUNT (AUTO) 206 K/uL (150-450); RED BLOOD CELL COUNT(AUTO) 3.14 MIL/uL (4.00-5.20); RED CELL DISTRIBUTION WIDTH 14.9 % (11.5-14.5); WHITE BLOOD COUNT (AUTO) 6.4 K/uL (4.5-11.0)
[2023-04-16 08:07] LABS: HEMOGLOBIN A1C 7.1 % (3.8-5.6)
[2023-04-16 08:14] LABS: FREE T4 (FREE THYROXINE) 0.69 ng/dL (0.76-1.46); THYROID STIMULATING HORMONE 1.86 uIU/mL (0.36-3.74)
[2023-04-16 08:18] VITALS: BP 109/55; PULSE 70; RESP 16; TEMP 98; O2SAT 95
[2023-04-16] MEDS: ATOMOXETINE HCL 60 MG CAPSULE PO SCH (09:46)
[2023-04-16] MEDS: METOPROLOL SUCCINATE 50 MG ER TABLET PO SCH (09:46)
[2023-04-16] MEDS: ATORVASTATIN CALCIUM 40 MG TABLET PO SCH (09:47)
[2023-04-16] MEDS: DULoxetine HCL 60 MG CAPSULE PO SCH (09:47)
[2023-04-16] MEDS: OMEPRAZOLE 20 MG CAPSULE PO SCH (09:47)
[2023-04-16] MEDS: AMIODARONE HCL 200 MG TABLET PO SCH (09:47)
[2023-04-16] MEDS: MULTIVITAMINS WITH MINERALS, THERAPEUTIC TABLET PO SCH (09:47)
[2023-04-16] MEDS: NALTREXONE HCL 50 MG TABLET PO SCH (09:48)
[2023-04-16] MEDS: FOLIC ACID 1 MG TABLET PO SCH (09:48)
[2023-04-16] MEDS: FLUTICASONE/VILANTEROL 100-25 MCG/INH INHALER [14] IH SCH (09:49)
[2023-04-16 16:33] LABS: GLUCOMETER DEV NAME(LOC) BV2S.; GLUCOSE,POINT OF CARE 151 MG/DL (70-110)
[2023-04-16 20:33] VITALS: BP 145/84; PULSE 72; RESP 18; TEMP 97.8; O2SAT 98
[2023-04-17 06:03] LABS: GLUCOMETER DEV NAME(LOC) BV2S.; GLUCOSE,POINT OF CARE 172 MG/DL (70-110)
[2023-04-17 08:15] VITALS: BP 150/88; PULSE 75; RESP 18; TEMP 97.5; O2SAT 96
[2023-04-17] MEDS: FUROSEMIDE 20 MG TABLET PO SCH (08:57)
[2023-04-17] MEDS: LinaGLIPtin 5 MG TABLET PO SCH (08:58)
[2023-04-17 16:00] VITALS: BP 108/62; PULSE 78; RESP 18; TEMP 97.7
[2023-04-17] MEDS: ACETAMINOPHEN 325 MG TABLET PO PRN (16:00)
[2023-04-17 16:36] LABS: GLUCOMETER DEV NAME(LOC) BV2S.; GLUCOSE,POINT OF CARE 129 MG/DL (70-110)
[2023-04-17 17:00] VITALS: RESP 18; O2SAT 96
[2023-04-17 20:23] VITALS: BP 112/63; PULSE 70; RESP 19; TEMP 98; O2SAT 97
[2023-04-18 06:22] LABS: GLUCOMETER DEV NAME(LOC) BV2S.; GLUCOSE,POINT OF CARE 135 MG/DL (70-110)
[2023-04-18 08:05] VITALS: BP 125/76; PULSE 82; RESP 16; TEMP 97.5; O2SAT 95
[2023-04-18] MEDS ORDERED: TOPI25 PO (14:14)
[2023-04-18] MEDS ORDERED: DULO-113 PO (14:14)
[2023-04-18] MEDS ORDERED: ROPI1TAB46 PO (14:14)
[2023-04-18] MEDS ORDERED: MIRT-149 PO (14:14)
[2023-04-18] MEDS ORDERED: NALT50TA33 PO (14:14)
[2023-04-18] MEDS ORDERED: PRAZ1 PO (14:14)
[2023-04-18 16:42] LABS: GLUCOMETER DEV NAME(LOC) BV2S.; GLUCOSE,POINT OF CARE 119 MG/DL (70-110)
[2023-04-18] MEDS: PRAZOSIN HCL 1 MG CAPSULE PO SCH (20:30)
[2023-04-18 20:57] VITALS: BP 121/78; PULSE 70; RESP 18; TEMP 97.3; O2SAT 89
[2023-04-19 05:08] LABS: HEPATITIS C AB (EIA) Non Reactive (Non Reactive)
[2023-04-19 07:12] LABS: GLUCOMETER DEV NAME(LOC) BV2S.; GLUCOSE,POINT OF CARE 154 MG/DL (70-110)
[2023-04-19 08:12] VITALS: BP 130/65; PULSE 62; RESP 17; TEMP 98; O2SAT 95
[2023-04-19 16:41] LABS: GLUCOMETER DEV NAME(LOC) BV2S.; GLUCOSE,POINT OF CARE 123 MG/DL (70-110)
== END 2023-04-19 17:20 | disposition home or self-care (01) | DRG 885 ==
LOC: B2S 14:24
PROVIDERS: ADMIT Psychiatry & Neurology Psychiatry; ATTEND Psychiatry & Neurology Psychiatry
PROC: GZHZZZZ Group Psychotherapy (ICD-10-PCS; principal; 2023-04-15)
PROC: GZ51ZZZ Individual Psychotherapy, Behavioral (ICD-10-PCS; 2023-04-15)
DX: F25.0 Schizoaffective disorder, bipolar type (principal); N18.4 Chronic kidney disease, stage 4 (severe); I13.0 Hypertensive heart and chronic kidney disease with heart failure and stage 1 through stage 4 chronic kidney disease, or unspecified chronic kidney disease; R45.851 Suicidal ideations; I49.5 Sick sinus syndrome; I48.91 Unspecified atrial fibrillation; I50.9 Heart failure, unspecified; J44.9 Chronic obstructive pulmonary disease, unspecified; K21.9 Gastro-esophageal reflux disease without esophagitis; G25.81 Restless legs syndrome; D64.9 Anemia, unspecified; G89.4 Chronic pain syndrome; G47.09 Other insomnia; Z20.822 Contact with and (suspected) exposure to COVID-19; E78.00 Pure hypercholesterolemia, unspecified; F17.200 Nicotine dependence, unspecified, uncomplicated; E11.22 Type 2 diabetes mellitus with diabetic chronic kidney disease; Z95.810 Presence of automatic (implantable) cardiac defibrillator; Z74.01 Bed confinement status; Z91.018 Allergy to other foods; Z91.013 Allergy to seafood; Z79.899 Other long term (current) drug therapy
CPT/HCPCS: 80061; 82962; 83036; 84439; 84443; 85025; 86592; 86803; 87340; Q9967

== ENCOUNTER 2024-10-08 10:52 | Emergency (ER) | payer OTHER ==
[~2024-10-08] VITALS: Ht 170.2 cm; Wt 127.3 kg
[~2024-10-08 10:52] MED LIST changes: -AMIO200T68 PO; -ATOR40TA28 PO; -DULO-113 PO; +DULO60CA73 PO; -FLUT1AER IH; -FURO20 PO; -METO-558 PO; +MIRT-149 PO; -MIRT-93 PO; -NALT50TA PO; +NALT50TA33 PO; -OMEP20 PO; +PRAZ1 PO; -PRAZ2 PO; +ROPI1TAB46 PO; -ROPI2TAB26 PO; +TOPI-257 PO; -TOPI100T37 PO
[2024-10-08 11:01] VITALS: BP 112/62; PULSE 60; RESP 16; TEMP 98.2; O2SAT 94
[2024-10-08 11:33] LABS: CALCIUM, TOTAL 8.1 mg/dL (8.8-10.5); CREATININE 1.97 mg/dL (0.60-1.30); GLOMERULAR FILTR. RATE CALC 26.0 mL/min (>60); GLUCOSE,RANDOM 239.0 mg/dL (70-110); SODIUM SERUM 136.0 mmol/L (136-145); UREA NITROGEN, BLOOD 28.0 mg/dL (7-18)
[2024-10-08 11:38] LABS: COVID AG,FIA SOURCE NASAL SWAB
[2024-10-08 11:43] LABS: PLATELET COUNT (AUTO) 259 K/uL (150-450); RED BLOOD CELL COUNT(AUTO) 3.26 MIL/uL (4.00-5.20); RED CELL DISTRIBUTION WIDTH 15.1 % (11.5-14.5); WHITE BLOOD COUNT (AUTO) 4.3 K/uL (4.5-11.0)
[2024-10-08 11:56] LABS: SARS-COV2 (COVID) ANTIGEN,FIA Negative (Negative)
[2024-10-08] MEDS ORDERED: PROMETHAZINE HCL 25 MG TABLET PO PRN (12:15)
[2024-10-08] MEDS ORDERED: ZOLPIDEM TARTRATE 10 MG TABLET PO PRN (12:15)
[2024-10-08] MEDS ORDERED: MAG HYDROX/ALUMINUM HYD/SIMETH ES 30 ML SUSPENSION UDCUP PO PRN (12:15)
[2024-10-08] MEDS ORDERED: ACETAMINOPHEN 325 MG TABLET PO PRN (12:15)
[2024-10-08] MEDS ORDERED: LOPERAMIDE HCL 2 MG CAPSULE PO PRN (12:15)
[2024-10-08] MEDS ORDERED: MAGNESIUM HYDROXIDE SUSPENSION 30 ML UDCUP PO PRN (12:15)
[2024-10-08] MEDS ORDERED: GuaiFENesin/D-METHORPHAN [SUGAR-FREE] 200-20MG/10 ML SYRUP UDCUP PO PRN (12:15)
[2024-10-08 12:24] LABS: APPEARANCE,URINE CLEAR (CLEAR); GLUCOSE, URINE (UA) >=1000 mg/dL (NEGATIVE); LEUKOCYTE ESTERASE ,URINE NEGATIVE (NEGATIVE); NITRATE,URINE NEGATIVE (NEGATIVE); OCCULT BLOOD,URINE NEGATIVE (NEGATIVE); PH,URINE DRUG SCREEN 5.5 (5.0-8.0); SPECIFIC GRAVITIY, URINE 1.008 (1.003-1.030)
[2024-10-08 12:26] LABS: ALCOHOL, URINE DRUG SCREEN NEGATIVE (NEGATIVE); AMPHET/METH SCREEN,URINE NEGATIVE (NEGATIVE); BARBITURATE SCREEN, URINE NEGATIVE (NEGATIVE); CANNABINOID SCREEN,URINE NEGATIVE (NEGATIVE); COCAINE SCREEN,URINE NEGATIVE (NEGATIVE); METHADONE SCREEN, URINE NEGATIVE (NEGATIVE)
[2024-10-08 12:34] LABS: SQUAMOUS EPITHELIAL CELL,UR Few /LPF (None Seen)
[2024-10-08] MEDS: CALCIUM CARBONATE 500 MG CHEWABLE TABLET CHEW ONE (13:08)
[2024-10-08] MEDS: MetFORMIN HCL 500 MG ER TABLET PO ONE (13:08)
[2024-10-08] MEDS: CYANOCOBALAMIN 1,000 MCG/ML VIAL IM ONE (13:08)
[2024-10-08] MEDS ORDERED: TUBERCULIN, PURIFIED PROTEIN DERIVATIVE 5 TU/0.1 ML SYRINGE ID ONE ×2 (16:00)
[2024-10-08] MEDS ORDERED: THIAMINE 100 MG TABLET PO SCH (17:00)
[2024-10-08] MEDS ORDERED: TraZODone HCL 150 MG TABLET PO SCH (21:00)
[2024-10-08] MEDS ORDERED: PRAZOSIN HCL 2 MG CAPSULE PO SCH ×2 (21:00)
[2024-10-08] MEDS ORDERED: MIRTAZAPINE 15 MG TABLET PO SCH ×2 (21:00)
[2024-10-08] MEDS ORDERED: DOXEPIN HCL 50 MG CAPSULE PO SCH ×2 (21:00)
[2024-10-08] MEDS ORDERED: MELATONIN 5 MG TABLET PO SCH ×2 (21:00)
[2024-10-09] MEDS ORDERED: MULTIVITAMINS WITH MINERALS, THERAPEUTIC TABLET PO SCH (09:00)
[2024-10-09] MEDS ORDERED: FOLIC ACID 1 MG TABLET PO SCH (09:00)
[2024-10-09] MEDS ORDERED: ATOMOXETINE HCL 60 MG CAPSULE PO SCH ×2 (09:00)
[2024-10-09] MEDS ORDERED: NALTREXONE HCL 50 MG TABLET PO SCH ×2 (09:00)
[2024-10-09] MEDS ORDERED: DULoxetine HCL 30 MG CAPSULE PO SCH ×2 (09:00)
[2024-10-13] MEDS ORDERED: FURO20TA5 PO (10:34)
[2024-10-13] MEDS ORDERED: ATOR40TA28 PO (10:36)
[2024-10-13] MEDS ORDERED: DAPA5TAB PO (10:36)
== END 2024-10-08 16:19 | disposition admitted as inpatient to this hospital (09) ==
LOC: EMS 15:44 → 3EX 16:09 → UNDOADMIN 16:09 → EMS 16:19
DX: F32.2 Major depressive disorder, single episode, severe without psychotic features (principal); R45.851 Suicidal ideations; I11.0 Hypertensive heart disease with heart failure; I50.9 Heart failure, unspecified; E11.9 Type 2 diabetes mellitus without complications; E78.00 Pure hypercholesterolemia, unspecified; J44.9 Chronic obstructive pulmonary disease, unspecified; F17.210 Nicotine dependence, cigarettes, uncomplicated; Z91.018 Allergy to other foods; Z91.013 Allergy to seafood; Z79.899 Other long term (current) drug therapy; Z20.822 Contact with and (suspected) exposure to COVID-19
CPT/HCPCS: 99284; 87426; 80048; 81001; 82962; 83036; 85025; 36415; 96372; 80307; G0480; J3420; 99285